=== PATIENT | male | born 1985 | race Caucasian/White ===

== ENCOUNTER 2019-03-30 16:08 | Emergency (ER) | payer SELFPAY ==
[2019-03-30 16:25] VITALS: BP 122/98; PULSE 96; RESP 18; TEMP 37.2; O2SAT 98
--- NOTE | 2019-03-30 16:51 | W.ED.GENAD ---
Discharge Plan Disposition Patient Disposition: HOME Condition: Good Discharge Details Chief Complaint: Laceration Clinical Impression: Laceration of left thigh Primary Care Provider: Lina Chester ED Provider: Karen Geller Home Meds and New Rx's Prescriptions: Continued methadone [Dolophine] 5 MG tablet 40 mg PO DAILY RF: 0 omeprazole 20 MG capsule,delayed release(DR/EC) 20 mg PO DAILY Qty: 30 RF: 0 Discharge Instructions Instructions: Care For Your Stitches (ED), Laceration (ED) Additional Instructions: Keep wound clean, dry, covered. Tylenol and ibuprofen as needed for discomfort. Please keep current dressing on for the next 24 hours. After that time, you may cover with a Band-Aid. You may wash with running water and soap but please do not soak or submerge as this may increase risk of infection. Please monitor for signs of infection including redness, warmth, drainage, increased pain, fever/chills. If you develop these or other new/worsening symptoms please seek care urgently once again. Otherwise, please return in 12 days for suture removal. Referrals: Lina Chester [Primary Care Provider] - Discharge Data Discharge Date/Time-TO BE ENTERED AT DEPARTURE: 03/30/19 18:00 Medical Decision Making Patient is a 33-year-old male presents today with chief complaint of laceration to left anterior thigh. Patient works as a mechanical design technician. States that he was doing body work when the rotational tad cut the left anterior thigh. He was wearing jeans at the time of the incident. Is not up-to-date on tetanus. Denies other injury the time of the incident. Denies any altered sensation. Patient has a 5 cm linear laceration to the left anterior thigh and into the subcutaneous tissue. Discussed risk/benefits of closure as well as expected procedural steps. He voiced understanding and wished to proceed. Please see procedure note. This was preformed using standard sterile technique. Wound was copiously irrigated with sterile saline, no FB or debris was noted. Patient tolerated procedure well. Discussed wound care in depth. Discussed activities to avoid. Wound dressed by nursing staff. He will return in 12 days for suture removal. Discussed sxs of infection and when to seek care urgently once again. All of his question and concerns were addressed, he is in agreement wiht this plan. HPI General Mode of arrival: ambulatory. Date/Time Provider Initiated Documentation: 03/30/19 16:44. Limitations to Documentation: no limitations. Information obtained by: patient and RN notes reviewed. History of Present Illness 33 year old M presents to the emergency department with the chief complaint of laceration left anterior thigh, described as moderate, with intensity rated at 7. Quality is described as aching, and is localized to the left and lower extremity. Patient reports no radiation. Patient started experiencing this minute(s) and it has been constant. No relieving factors improve symptom(s), No exacerbating factors reported . Patient notes no other symptoms.. Patient did receive the following treatments prior to arrival, none Related Data Home Medications Medication Instructions Recorded Confirmed methadone [Dolophine] 40 mg PO DAILY 07/07/17 03/30/19 omeprazole 20 mg PO DAILY #30 capsule. 12/21/17 03/30/19 Previous Rx's Medication Instructions Recorded omeprazole 20 mg PO DAILY #30 capsule. 12/21/17 Allergies Allergy/AdvReac Type Severity Reaction Status Date / Time No Known Allergies Allergy Unverified 03/30/19 16:24 General Stated Complaint: Laceration LUIS A: 4 Review of Systems Constitutional Reports as per HPI, Denies chills and Denies fever(s) Musculoskeletal Reports as per HPI Integumentary/Breasts Reports as per HPI Neurologic Reports as per HPI, Denies sensory deficit and Denies paresthesias [facility] Social History Smoking/Tobacco Use Status: Current every day Tobacco Type: smokeless tobacco Alcohol Intake: current Alcohol Intake frequency: a few times a week Drug use: Never Do you feel safe at home: Yes Do you feel safe in your relationship?: Yes Exam Const General: cooperative, healthy appearing, comfortable, no acute distress and well developed Nutritional Appearance: average body habitus and well nourished Orientation: alert and awake Resp Effort & Inspection: normal respiratory effort, able to speak in complete sentences and no respiratory distress Cardio Rate: regular rate Rhythm: regular rhythm Skin Trauma: laceration (6cm linear laceration into sub Q tissue left anterior mid thigh) Neuro General: alert and awake Cognition: normal cognition Speech: speech normal Gait: normal gait Sensory Exam: no sensory deficits noted Extrem Left lower extremity: full ROM, normal capillary refill and no joint enlargement; abnormal to inspection (laceration as above. Exam otherwise normal) Psych Appearance: grossly normal and well kempt Mental Status: mental status grossly normal Speech and Movement: speech and movement normal Course Vital Signs Temperature 37.2 C 03/30/19 16:25 Pulse 96 H 03/30/19 16:25 Respiratory Rate 18 03/30/19 16:25 Blood Pressure 122/98 H 03/30/19 16:25 Pulse Oximetry 98 03/30/19 16:25 Temperature 37.2 C 03/30/19 16:25 Temperature Source Temporal Artery Scan 03/30/19 16:25 Pulse 96 H 03/30/19 16:25 Respiratory Rate 18 03/30/19 16:25 Respiratory Effort Non-Labored 03/30/19 16:28 Blood Pressure 122/98 H 03/30/19 16:25 Blood Pressure Position Supine 03/30/19 16:25 Pulse Oximetry 98 03/30/19 16:25 Oxygen Delivery Method Room Air 03/30/19 16:25 Oxygen Flow Rate 0 03/30/19 16:25 Pain Level 7 03/30/19 16:29 Procedures Laceration Laceration 1: Site: lower extremity Side (If applicable): left Size (cm): 6 Description: linear Depth: simple, single layer Local Anesthetic: Lidocaine 1% and with Epi Amount of anesthesia used (mL): 10 Pre-repair: wound explored, irrigated extensively and deep structures intact Skin layer closed with: nylon Size (cm): 4-0 Number of sutures: 6 Technique: simple, interrupted
== END 2019-03-30 18:00 | disposition home or self-care (01) ==
PROVIDERS: Emergency Provider Physician Assistant; PCP Family Medicine
DX: S71.112A Laceration without foreign body, left thigh, initial encounter (principal); W31.2XXA Contact with powered woodworking and forming machines, initial encounter; Y99.0 Civilian activity done for income or pay
CPT/HCPCS: 12002; 90471

== ENCOUNTER 2022-03-09 08:18 | Emergency (ER) | payer MEDICAID, SELFPAY ==
[2022-03-09] VITALS (32 sets, daily range): BP systolic 117–155; BP diastolic 64–99; PULSE 48–89; RESP 10–24; TEMP 36.8; O2SAT 96–100
--- NOTE | 2022-03-09 08:30 | RT.EKG_ITS ---
APPROVED REPORT Exam: Resting ECG Reason for Exam: [facility] Patient Location: E HR:51 bpm ECG Measurements Heart Rate 51 AXIS SC 161 P 68 QRSd 97 QRS 72 QT 475 T 66 QTc 440 Conclusion Sinus bradycardia...rate< 60. Sinus. Normal axis. No STEMI. I have reviewed and interpreted ECG and agree with software generated interpretation.
--- NOTE | 2022-03-09 08:31 | DI.RAD_ITS ---
Exam(s) XR CHEST 1V IN DI DEPT EXAM: XR CHEST 1V IN DI DEPT CLINICAL HISTORY: ams. TECHNIQUE: 2D digital imaging was performed. COMPARISON: No exams were available for comparison FINDINGS: Single AP portable view. Heart size is upper normal. The mediastinum is not widened. Lungs are clear. No infiltrates nor obvious pleural effusions. IMPRESSION: No acute pulmonary findings on this single AP portable view of the chest. DATA REPOSITORY: RADIATION DOSE DELIVERED: All CT scans at this facility use at least one of these dose optimization techniques: automated exposure control; mA and/or kV adjustment per patient size (includes targeted e xams where dose is matched to clinical indication); or iterative reconstruction.
--- NOTE | 2022-03-09 08:33 | W.ED.GENAD ---
Discharge Plan Disposition Patient Disposition: [facility] Condition: Serious Discharge Details Chief Complaint: AMS/LOC Clinical Impression: Subarachnoid hemorrhage Primary Care Provider: Lina Chester ED Provider: Ismael Reaves Home Meds and New Rx's Prescriptions: No Action permethrin 5 % cream 1 applic topical Q14D Qty: 60 0RF Rx Instructions: apply second treatment 14 days after first treatment if live lice remain hydroxyzine pamoate 25 mg capsule 25 mg PO Q8H PRN (Reason: nausea and vomiting) Qty: 20 0RF methadone [Dolophine] 5 MG tablet 40 mg PO DAILY Taper: Prednisone 20mg taper 80 mg Daily for 2 Days and 0 Hour 60 mg Daily for 2 Days and 0 Hour 40 mg Daily for 2 Days and 0 Hour 20 mg Daily for 2 Days and 0 Hour 10 mg Daily for 2 Days and 0 Hour Label Comments: is on a blind taper so he is unaware of the dose omeprazole 20 MG capsule,delayed release(DR/EC) 20 mg PO DAILY Qty: 30 0RF Discharge Data Discharge Date/Time-TO BE ENTERED AT DEPARTURE: 03/09/22 12:15 Medical Decision Making <CHANO Lloyd - Last Filed: 03/09/22 12:00> 36-year-old gentleman presents for evaluation of altered mental status and headache, very vague and poor historian. 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 Does report drinking a couple of beers every day. Headache began sometime yesterday evening but denies any obvious trauma or recent illness. Differential is broad and includes intracranial process, meningitis, other infectious process, drug abuse, psychosis, etc. Plan is to obtain IV access, give IV fluid, obtain stat head CT initiate a septic and cardiac work-up as the patient's reports that he did have evaluation and admission at [facility] a few years ago when he was having chest pain and subsequently had his gallbladder removed, was told he had renal insufficiency and a spot on his brain. His tells me that he was seen at the urgent care 3 days ago for his skin wounds, he was provided a prescription for steroids but has not filled this. Otherwise I would be concerned for a steroid induced psychosis. If there is no clear source of his presentation will need to then consider LP. Laboratory values are grossly unremarkable for obvious emergent process. Patient unable to provide a urine sample. I received a call from virtual radiology stating that the patient has an Acute subarachnoid hemorrhage at the basal cisterns, minimal intraventricular , and subdural hemorrhage along the right tentorium, of uncertain etiology. CT imaging pushed to [facility] and I initiated a transfer to [facility] at 0938. Case was also discussed with Dr. Sterling who personally evaluated the patient, please see her note as well. Overall his mental status has not dramatically changed from his initial presentation. He continues to maintain his airway. Most recent blood pressure is 132/66. Given his overall restlessness and discomfort will provide 1 mg Ativan and 1 g IV Tylenol. At this time I do not believe that he requires emergent intubation. He remains hemodynamically stable as well. Patient has become less restless. We will hold any Ativan at this time and hope not to sedate the patient as he is currently maintaining his airway. Most recent blood pressure 145/90. At 1012 I was able to speak with neurosurgery from [facility] Dorcas Martines, we reviewed the case. She stated that they were on diversion for neuro IR and needed to consult with her team to determine if they would be able to accept the patient. I spoke with Dorcas from neurosurgery again at 1036. They are at capacity, on diversion and cannot accept the patient. She does state that on previous imaging at their facility he did had a brain cyst and questions if this could be the source of bleeding but this needs to be treated as an aneurysm until proven otherwise and the patient requires neuro IR. She recommends initiating Keppra 2 g IV loading dose now and then can do 500 mg twice daily, recommends the patient is n.p.o., that we monitored the blood pressure and keep the systolic below 140, and if possible obtain a CTA of the head and neck. We contacted [facility] and were told that they were at capacity and cannot accept at 1038 I was then able to speak with [facility] at 1048, Dr. Hartmann, who is agreeable to accept transfer to their neuro surgery unit. Stated that a CTA of the head and neck would be helpful if obtained prior to transfer but we will not delay transfer in order to obtain CTA. No additional recommendation. Will transfer via helicopter. Blood pressure monitored closely, he did have 2 blood pressure readings with a systolic over 140, 141 and 143 respectively. He was in the process of ordering nicardipine and the next blood pressure was 134/88. We will hold any antihypertensives. Patient's is now back at bedside and he appears slightly more awake and alert than previous. He is maintaining his airway without difficulty. Patient continues to maintain his airway without difficulty. There is no indication for emergent intubation. We were able to obtain the CTA of the head and neck, I have no read on either of these. I then gave provider provider discussion with both Sari Merino NP and lottie Armas MD on the neurosurgery ICU floor. They are aware of the transfer and accept the patient again after my initial conversation with Dr. Hartmann. Blood pressure, specifically the systolic blood pressure remains under 140, we have not initiated any antihypertensive medications. The radiology department was contacted and we requested that the patient go with a disc that contains all of their imaging from today. 03/09/22 Dr Sterling 0900 -- I have seen and examined this patient. I discussed case and reviewed note with the CHANO Reaves and I agree with plan and note as documented. Patient is a 36-year-old male with former history of narcotic drug abuse currently not on methadone presents for altered mental static and headache this morning. Patient has been altered at times and other times answering questions appropriately. He is oriented to person and place but not time. He is moving all extremities. CT head notes an acute subarachnoid hemorrhage at the basal cisterns with minimal intraventricular and subdural hemorrhage along the right territorial but no midline shift. He remains hemodynamically stable and protecting his airway. Low threshold for intubation. We will give Tylenol for pain. Ativan ordered as he was restless but more relaxed now. [facility] transfer initiated. 1020 -- patient remains hemodynamically stable. He continues to protect his airway. He is arousable and able to answer questions appropriately. He is oriented x3. Blood pressure 141/81. Oxygen saturation 99% on room air. 1045 -- pt remains hemodynamically stable. His systolic blood pressure is 145. Will give a dose of nicardipine. He is drowsy but arousable and oriented x3. He endorses his timeline of symptoms and that they started suddenly upon standing last night. who is at bedside states that he has been confused at times since last night. Pain is airway he continues to maintain his airway but low threshold for intubation. Medical Records Medical records reviewed: Yes I reviewed the patient's medical records. Imaging Data Radiologic Study: Attestation: I personally reviewed and interpreted this imaging study as follows: Imaging: X-Ray Radiologist's impression: PROCEDURE INFORMATION: Exam: XR Chest Exam date and time: 03/09/2022 7:15 AM Age: 21 years old Clinical indication: Cough with hemorrhage; Patient HX: Cough w/ speckling of blood. R/O mass/pneumonia TECHNIQUE: Imaging protocol: Radiologic exam of the chest. Views: 2 views. COMPARISON: CR XR ABDOMEN FLAT UPRIGHT 12/28/2021 12:18 PM FINDINGS: Lungs: Unremarkable. No consolidation. Pleural spaces: Unremarkable. No pleural effusion. No pneumothorax. Heart/Mediastinum: Unremarkable. No cardiomegaly. Bones/joints: Unremarkable. IMPRESSION: No acute findings. Radiologic Study #2: Attestation: I personally reviewed and interpreted this imaging study as follows: Imaging: CT Scan Radiologist's impression: PROCEDURE INFORMATION: Exam: CT Head Without Contrast Exam date and time: 03/09/2022 8:47 AM Age: 36 years old Clinical indication: Other: AMS TECHNIQUE: Imaging protocol: Computed tomography of the head without contrast. Radiation optimization: All CT scans at this facility use at least one of these dose optimization techniques: automated exposure control; mA and/or kV adjustment per patient size (includes targeted exams where dose is matched to clinical indication); or iterative reconstruction. COMPARISON: No relevant prior studies available. FINDINGS: Brain: Foci of acute subarachnoid hemorrhage are seen at the basal cisterns anterior to the brainstem and also along the interpeduncular fossa and perimesencephalic cistern on the right side. The largest focus measures 1.7 cm. A small amount of layering hemorrhage is also seen in the posterior horns of the lateral ventricles. The ventricular system is mildly prominent. There is question of an additional punctate focus of subarachnoid hemorrhage in the superior right frontal lobe. No definite midline shift is identified. There is a tiny amount of hemorrhage layering along the right side of the tentorium. Cerebral ventricles: See Brain finding. Paranasal sinuses: Visualized paranasal sinuses are well aerated. Mastoid air cells: Visualized mastoid air cells are well aerated. Bones/joints: No significant osseous abnormality. Soft tissues: Unremarkable. IMPRESSION: JOSSUE PABLO Preliminary Radiology Report PRESSURIZATION MECHANIC (QA) DISCREPANCY? If there is a discrepancy between the preliminary and final interpretation, please notify [facility] via [email or web address]. If you do not have access to our QA portal, call our QA team at [phone] CONFIDENTIALITY STATEMENT This report is intended only for the use of the referring physician, and only in accordance with law, If you received this in error, call [phone] Page 2 of 2 1. Acute subarachnoid hemorrhage at the basal cisterns, minimal intraventricular , and subdural hemorrhage along the right tentorium, of uncertain etiology. Close follow-up is recommended. 2. THIS REPORT CONTAINS FINDINGS 3. THAT MAY BE CRITICAL TO PATIENT CARE. 4. The findings were verbally communicated 5. Via telephone conference with Ismael Sullivan at 9:38 AM EDT on 03/09/2022. 7. The findings were acknowledged and understood. Lab Data Lab results reviewed: Yes I reviewed the patient's lab results. Labs: 03/09/22 08:31 Blood Blood Culture - Pending 03/09/22 08:31 Blood Blood Culture - Pending Laboratory Tests Range/Units 03/09/22 03/09/22 03/09/22 08:15 08:30 08:30 WBC (4.4-10.8) 10^3/uL 10.55 RBC (4.36-5.78) 10^6/uL 5.47 Hgb (13.5-17.5) g/dL 10.9 L Hct (40.0-50.0) % 34.7 L MCV (80-95) fL 63 L MCH (27.0-33.0) pg 19.9 L MCHC (32.0-36.0) % 31.4 L RDW (11.8-14.1) % 14.6 H Plt Count (130-400) 10^3/uL 258 MPV (8.0-11.0) fL 10.6 Immature Gran % 0.2 Neutrophils % 90.8 Lymphocytes % 5.7 Monocytes % 3.2 Eosinophils % 0.0 Basophils % 0.1 Nucleated RBC % (0.0-0.3) % 0.0 Absolute Neutrophils (1.2-6.7) 10^3/uL 9.58 H Absolute Lymphocytes (1.2-3.4) 10^3/uL 0.60 L Absolute Monocytes (0.1-0.8) 10^3/uL 0.34 Absolute Eosinophils (0.0-0.7) 10^3/uL 0.00 Absolute Basophils (0.0-0.2) 10^3/uL 0.01 RBC Morphology See Below Hypochromasia 1+ Microcytosis 2+ PT (9.3-11.0) sec INR (0.9-1.1) VBG Lactate Sodium (136-145) mmol/L 136 Potassium (3.5-5.1) mmol/L 3.4 L Chloride (98-107) mmol/L 102 Carbon Dioxide (21.0-32.0) mmol/L 24.4 Anion Gap (3-11) mmol/L 9.6 BUN (7-18) mg/dL 16 Creatinine (0.70-1.30) mg/dL 1.0 Estimated GFR/1.73 m2 (mL/min/1.73m2) >= 60.00 Glucose (74-106) mg/dL 123 H Calcium (8.5-10.1) mg/dL 8.7 Magnesium (1.8-2.4) mg/dL 2.1 Total Bilirubin (0.2-1.0) mg/dL 1.2 H AST (15-37) U/L 19 ALT (16-63) U/L 36 Alkaline Phosphatase (46-116) U/L 55 Troponin I (<or=60) ng/L < 50 Total Protein (6.4-8.2) g/dL 7.1 Albumin (3.4-5.0) g/dL 4.4 Procalcitonin ng/mL TSH (0.36-3.74) uIU/mL 0.40 Ethyl Alcohol (<10) mg/dL < 3.0 COVID-19 Source Nasopharynx SARS-CoV-2 (PCR) (Negative) Negative Influenza Type A (PCR) (Negative) Negative Influenza Type B (PCR) (Negative) Negative RSV (PCR) (Negative) Negative Range/Units 03/09/22 03/09/22 03/09/22 08:31 08:31 08:32 WBC (4.4-10.8) 10^3/uL RBC (4.36-5.78) 10^6/uL Hgb (13.5-17.5) g/dL Hct (40.0-50.0) % MCV (80-95) fL MCH (27.0-33.0) pg MCHC (32.0-36.0) % RDW (11.8-14.1) % Plt Count (130-400) 10^3/uL MPV (8.0-11.0) fL Immature Gran % Neutrophils % Lymphocytes % Monocytes % Eosinophils % Basophils % Nucleated RBC % (0.0-0.3) % Absolute Neutrophils (1.2-6.7) 10^3/uL Absolute Lymphocytes (1.2-3.4) 10^3/uL Absolute Monocytes (0.1-0.8) 10^3/uL Absolute Eosinophils (0.0-0.7) 10^3/uL Absolute Basophils (0.0-0.2) 10^3/uL RBC Morphology Hypochromasia Microcytosis PT (9.3-11.0) sec INR (0.9-1.1) VBG Lactate Cancelled Sodium (136-145) mmol/L Potassium (3.5-5.1) mmol/L Chloride (98-107) mmol/L Carbon Dioxide (21.0-32.0) mmol/L Anion Gap (3-11) mmol/L BUN (7-18) mg/dL Creatinine (0.70-1.30) mg/dL Estimated GFR/1.73 m2 (mL/min/1.73m2) Glucose (74-106) mg/dL Calcium (8.5-10.1) mg/dL Magnesium (1.8-2.4) mg/dL Cancelled Total Bilirubin (0.2-1.0) mg/dL AST (15-37) U/L ALT (16-63) U/L Alkaline Phosphatase (46-116) U/L Troponin I (<or=60) ng/L Cancelled Total Protein (6.4-8.2) g/dL Albumin (3.4-5.0) g/dL Procalcitonin ng/mL TSH (0.36-3.74) uIU/mL Cancelled Ethyl Alcohol (<10) mg/dL COVID-19 Source SARS-CoV-2 (PCR) (Negative) Influenza Type A (PCR) (Negative) Influenza Type B (PCR) (Negative) RSV (PCR) (Negative) Range/Units 03/09/22 03/09/22 03/09/22 08:45 08:45 08:45 WBC (4.4-10.8) 10^3/uL RBC (4.36-5.78) 10^6/uL Hgb (13.5-17.5) g/dL Hct (40.0-50.0) % MCV (80-95) fL MCH (27.0-33.0) pg MCHC (32.0-36.0) % RDW (11.8-14.1) % Plt Count (130-400) 10^3/uL MPV (8.0-11.0) fL Immature Gran % Neutrophils % Lymphocytes % Monocytes % Eosinophils % Basophils % Nucleated RBC % (0.0-0.3) % Absolute Neutrophils (1.2-6.7) 10^3/uL Absolute Lymphocytes (1.2-3.4) 10^3/uL Absolute Monocytes (0.1-0.8) 10^3/uL Absolute Eosinophils (0.0-0.7) 10^3/uL Absolute Basophils (0.0-0.2) 10^3/uL RBC Morphology Hypochromasia Microcytosis PT (9.3-11.0) sec 10.6 INR (0.9-1.1) 1.1 VBG Lactate 1.1 Sodium (136-145) mmol/L Potassium (3.5-5.1) mmol/L Chloride (98-107) mmol/L Carbon Dioxide (21.0-32.0) mmol/L Anion Gap (3-11) mmol/L BUN (7-18) mg/dL Creatinine (0.70-1.30) mg/dL Estimated GFR/1.73 m2 (mL/min/1.73m2) Glucose (74-106) mg/dL Calcium (8.5-10.1) mg/dL Magnesium (1.8-2.4) mg/dL Total Bilirubin (0.2-1.0) mg/dL AST (15-37) U/L ALT (16-63) U/L Alkaline Phosphatase (46-116) U/L Troponin I (<or=60) ng/L Total Protein (6.4-8.2) g/dL Albumin (3.4-5.0) g/dL Procalcitonin ng/mL < 0.1 TSH (0.36-3.74) uIU/mL Ethyl Alcohol (<10) mg/dL COVID-19 Source SARS-CoV-2 (PCR) (Negative) Influenza Type A (PCR) (Negative) Influenza Type B (PCR) (Negative) RSV (PCR) (Negative) ECG Data Attestation: I personally reviewed and interpreted this ECG (s) as follows: Interpretation: Please see official report by Dr. Sterling. Sinus bradycardia, ventricular to 51, no STEMI. <Jil Sterling, DO - Last Filed: 03/10/22 09:04> 36-year-old gentleman presents for evaluation of altered mental status and headache, very vague and poor historian. 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 Does report drinking a couple of beers every day. Headache began sometime yesterday evening but denies any obvious trauma or recent illness. Differential is broad and includes intracranial process, meningitis, other infectious process, drug abuse, psychosis, etc. Plan is to obtain IV access, give IV fluid, obtain stat head CT initiate a septic and cardiac work-up as the patient's reports that he did have evaluation and admission at [facility] a few years ago when he was having chest pain and subsequently had his gallbladder removed, was told he had renal insufficiency and a spot on his brain. His tells me that he was seen at the urgent care 3 days ago for his skin wounds, he was provided a prescription for steroids but has not filled this. Otherwise I would be concerned for a steroid induced psychosis. If there is no clear source of his presentation will need to then consider LP. Laboratory values are grossly unremarkable for obvious emergent process. Patient unable to provide a urine sample. I received a call from virtual radiology stating that the patient has an Acute subarachnoid hemorrhage at the basal cisterns, minimal intraventricular , and subdural hemorrhage along the right tentorium, of uncertain etiology. CT imaging pushed to [facility] and I initiated a transfer to [facility] at 0938. Case was also discussed with Dr. Sterling who personally evaluated the patient, please see her note as well. Overall his mental status has not dramatically changed from his initial presentation. He continues to maintain his airway. Most recent blood pressure is 132/66. Given his overall restlessness and discomfort will provide 1 mg Ativan and 1 g IV Tylenol. At this time I do not believe that he requires emergent intubation. He remains hemodynamically stable as well. Patient has become less restless. We will hold any Ativan at this time and hope not to sedate the patient as he is currently maintaining his airway. Most recent blood pressure 145/90. At 1012 I was able to speak with neurosurgery from [facility] Dorcas Martines, we reviewed the case. She stated that they were on diversion for neuro IR and needed to consult with her team to determine if they would be able to accept the patient. I spoke with Dorcas from neurosurgery again at 1036. They are at capacity, on diversion and cannot accept the patient. She does state that on previous imaging at their facility he did had a brain cyst and questions if this could be the source of bleeding but this needs to be treated as an aneurysm until proven otherwise and the patient requires neuro IR. She recommends initiating Keppra 2 g IV loading dose now and then can do 500 mg twice daily, recommends the patient is n.p.o., that we monitored the blood pressure and keep the systolic below 140, and if possible obtain a CTA of the head and neck. We contacted [facility] and were told that they were at capacity and cannot accept at 1038 I was then able to speak with [facility] at 1048, Dr. Hartmann, who is agreeable to accept transfer to their neuro surgery unit. Stated that a CTA of the head and neck would be helpful if obtained prior to transfer but we will not delay transfer in order to obtain CTA. No additional recommendation. Will transfer via helicopter. Blood pressure monitored closely, he did have 2 blood pressure readings with a systolic over 140, 141 and 143 respectively. He was in the process of ordering nicardipine and the next blood pressure was 134/88. We will hold any antihypertensives. Patient's is now back at bedside and he appears slightly more awake and alert than previous. He is maintaining his airway without difficulty. 03/09/22 Dr Sterling 0900 -- I have seen and examined this patient. I discussed case and reviewed note with the PA Ismael Jelly and I agree with plan and note as documented. Patient is a 36-year-old male with former history of narcotic drug abuse currently not on methadone presents for altered mental static and headache this morning. Patient has been altered at times and other times answering questions appropriately. He is oriented to person and place but not time. He is moving all extremities. CT head notes an acute subarachnoid hemorrhage at the basal cisterns with minimal intraventricular and subdural hemorrhage along the right territorial but no midline shift. He remains hemodynamically stable and protecting his airway. Low threshold for intubation if condition deteriorates. We will give Tylenol for pain. Ativan was ordered as he was uncomfortable during lab draw but more relaxed now so ativan held. [facility] transfer initiated. 1020 -- patient remains hemodynamically stable. He continues to protect his airway. He is arousable and able to answer questions appropriately. He is oriented x3. Blood pressure 141/81. Oxygen saturation 99% on room air. 1045 -- pt remains hemodynamically stable. His systolic blood pressure is 145. Will give a dose of nicardipine. He is drowsy but arousable and oriented x3. He now is able to endorse his timeline of symptoms and that they started suddenly upon standing last night. who is at bedside states that he has been confused at times since last night. He continues to maintain his airway but low threshold for intubation if change in condition or pt deteriorates. 1145 -- patient remains hemodynamically stable. He is maintaining his airway. He is drowsy but arousable and seems more clear in his responses. He is oriented x3. Patient transferred over the [facility] team in no acute distress, some improvement in headache and appears more comfortable. HPI <CHANO Lloyd - Last Filed: 03/09/22 12:00> General Mode of arrival: EMS. Date/Time Provider Initiated Documentation: 03/09/22 08:27. Limitations to Documentation: altered mental status. Information obtained by: patient, family and EMS. HPI Narrative: This is a 36-year-old gentleman presenting to the ER via EMS for evaluation of headache and altered mental status. Unfortunately given his altered mental status he is a rather vague and poor historian and has difficulty participating in his HPI. I was able to speak with the patient's . She states that he is otherwise healthy, did use IV narcotic medication 5 years ago but has been clean since that time, was on methadone but has not been on methadone for the last 2 or 3 years. She states that he does drink a couple of beers on a daily basis. Yesterday she states that she received a call from her child at home around 10 PM stating that her father began having a headache, no obvious fall or trauma. She states that he took ibuprofen last night but throughout the night was complaining of head pain, seemed confused, and even urinated in the bedroom. He is not vaccinated for COVID. She denies any obvious known trauma or recent illness. Patient reported neck pain during triage but this is unclear to me as he is unable to tell me if he truly has neck pain or for simply head pain. He denies vomiting or fever. He does state that he has had a rash for approximately 5 weeks, seen at the urgent care 3 days ago was prescribed steroids but has not filled them, is scheduled to see dermatology next week. After speaking with the patient's she reports that a few years ago he was seen at [facility], subsequently transferred to [facility], was told he had a spot on his brain, had his gallbladder out, and was told that he had renal insufficiency. Related Data Home Medications Medication Instructions Recorded Confirmed methadone 5 mg tablet (Dolophine) 40 mg PO DAILY 07/07/17 03/30/19 omeprazole 20 mg capsule,delayed 20 mg PO DAILY ##30 12/21/17 03/30/19 release hydroxyzine pamoate 25 mg capsule 25 mg PO Q8H PRN nausea and 02/28/22 02/28/22 vomiting #20 caps permethrin 5 % topical cream 1 applic topical Q14D 2 doses #60 02/28/22 02/28/22 grams Previous Rx's Medication Instructions Recorded omeprazole 20 mg capsule,delayed 20 mg PO DAILY ##30 12/21/17 release hydroxyzine pamoate 25 mg capsule 25 mg PO Q8H PRN nausea and 02/28/22 vomiting #20 caps permethrin 5 % topical cream 1 applic topical Q14D 2 doses #60 02/28/22 grams Allergies Allergy/AdvReac Type Severity Reaction Status Date / Time No Known Allergies Allergy Unverified 02/28/22 16:29 General Stated Complaint: AMS/LOC LUIS A: 2 Review of Systems <CHANO Lloyd - Last Filed: 03/09/22 12:00> Narrative: Limited and difficult to obtain secondary to mental status Constitutional Constitutional: Denies fatigue, Denies fever(s), Reports headache(s) and Denies weakness Eyes Eyes: Denies loss of vision ENT Ears, Nose, Mouth, and Throat: Reports headache(s) and Reports neck pain (Unclear) Cardiovascular Cardiovascular: Denies chest pain and Denies dyspnea Respiratory Respiratory: Denies cough and Denies dyspnea Gastrointestinal Gastrointestinal: Denies abdominal pain, Denies nausea and Denies vomiting Musculoskeletal Musculoskeletal: Reports neck pain (Unclear) Integumentary/Breasts Skin/Breast: Reports rash Neurologic Neurologic: Reports headache(s), Denies loss of vision and Denies weakness Endocrine Endocrine: Denies fatigue Hematologic/Lymphatic Hematologic/Lymphatic: Denies easy bleeding and Denies easy bruising PFSH <CHANO Lloyd - Last Filed: 03/09/22 12:00> All Active Problems (Updated 03/09/22 @ 09:57 by CHANO Lloyd) Subarachnoid hemorrhage (Acute) Social History Smoking/Tobacco Use Status: Current every day Tobacco Type: smokeless tobacco Smoking risk assessment performed?: Yes Alcohol Intake: current Alcohol Intake frequency: a few times a week Drug use: Never Do you feel safe at home: Yes Do you feel safe in your relationship?: Yes Exam <CHANO Lloyd - Last Filed: 03/09/22 12:00> Const General: well developed and other (Appears uncomfortable, groaning, yells in pain) Orientation: alert, awake, oriented to person and oriented to place Limitations: altered mental status [facility] Head: normal to inspection, normocephalic and atraumatic General nose exam: external nose normal Face and sinus: normal facial exam Mouth: moist mucous membranes abnormal (Slightly dry) Throat: posterior oropharynx normal Eyes General: appearance normal, both eyes and all related structures Alignment and Position: alignment normal Periorbital: periorbital findings normal Eyelids: eyelids normal Conjunctivae: conjunctivae normal Sclera: sclerae normal Cornea: corneas normal Pupils: PERRL EOM: EOM intact bilaterally Direct ophthalmoscopy: normal light reflex Neck Neck: normal visual inspection, full ROM, no lymphadenopathy, no meningeal signs, trachea midline, supple and nontender Resp Effort & Inspection: normal respiratory effort and able to speak in complete sentences Auscultation: clear to auscultation bilaterally Cardio Rate: bradycardic (56) Rhythm: regular rhythm GI Palpation: soft, not firm, no guarding, no pulsatile masses and nontender Back/Spine/Pelvis Back: No back tenderness Skin General skin exam: no rashes or lesions noted Other: Patient does have multiple what appears to be shallow skin wounds-lesions on both of his arms, abdomen, legs. I do question a single track sindy in his left antecubital region. The wound on his abdomen does have mild surrounding ecchymosis. None of these areas appear consistent with a secondary cellulitis, drainage, active infection. Neuro General: patient alert, patient awake, oriented Patient Orientation: Person and Place, moves all extremities and no focal motor deficits Speech: speech normal Motor: muscle tone normal throughout Sensory Exam: no sensory deficits noted Other: Patient only partially follows directions so a thorough neurological examination is rather difficult. He does open his eyes to verbal stimuli, is able to stick his tongue out, equal wholesale account manager strength bilaterally, grossly moves all extremities without difficulty. Extrem General: full ROM, capillary refill normal, no pedal edema and no calf tenderness Psych Appearance: grossly normal Mental Status: mental status grossly normal Course <CHANO Lloyd - Last Filed: 03/09/22 12:00> Vital Signs Vital signs: Vital Signs Temperature 36.8 C 03/09/22 08:12 Pulse 56 L 03/09/22 08:12 Respiratory Rate 18 03/09/22 08:12 Blood Pressure 155/88 H 03/09/22 08:12 Pulse Oximetry 100 03/09/22 08:12 Temperature 36.8 C 03/09/22 08:12 Temperature Source Temporal Artery Scan 03/09/22 08:12 Pulse 56 L 03/09/22 08:12 Respiratory Rate 18 03/09/22 08:17 Respiratory Effort Non-Labored 03/09/22 08:17 Respiratory Depth Normal 03/09/22 08:17 Respiratory Pattern Normal 03/09/22 08:17 Blood Pressure 155/88 H 03/09/22 08:12 Blood Pressure Position Supine 03/09/22 08:12 Pulse Oximetry 100 03/09/22 08:12 Oxygen Delivery Method Room Air 03/09/22 08:12 Oxygen Flow Rate 0 03/09/22 08:12 Critical Care Time <CHANO Lloyd - Last Filed: 03/09/22 12:00> Critical Care Time Critical Care Time: Yes Total Critical Care Time: 75 Attestation: Upon my evaluation, this patient had a high probability of clinically significant, life-threatening deterioration due to their current medical conditions, which required my direct attention, intervention, and personal management. I have personally provided greater than 30 minutes of critical care time exclusive of the time spend on separately billable procedures. Time includes obtaining a history, examining the patient, pulse oximetry, review of laboratory data, radiology results, discussion with consultants, arranging urgent treatment with development of a management plan, evaluation of patient's response to treatment, and monitoring for potential decompensation. Interventions were performed as documented above.
[2022-03-09 08:38] LABS: Abs Immature Grans 0.02 10^3/uL (0.0-0.06); Absolute Basophil Count 0.01 10^3/uL (0.0-0.2); Absolute Monocyte Count 0.34 10^3/uL (0.1-0.8); Absolute Neutrophil Count 9.58 10^3/uL (1.2-6.7); Basophils % 0.1; HCT 34.7 % (40.0-50.0); HGB 10.9 g/dL (13.5-17.5); Immature Grans % 0.2; Lymphocytes % 5.7; MCH 19.9 pg (27.0-33.0); MCHC 31.4 % (32.0-36.0); MCV 63 fL (80-95); MPV 10.6 fL (8.0-11.0); Monocytes % 3.2; Neutrophils % 90.8; Platelet Count 258 10^3/uL (130-400); RBC 5.47 10^6/uL (4.36-5.78); RDW 14.6 % (11.8-14.1); RDW-SD 31.8 fL; WBC 10.55 10^3/uL (4.4-10.8)
[2022-03-09] MEDS: Normal Saline 1,000 ML 1000 ML IV (08:40)
--- NOTE | 2022-03-09 08:47 | DI.CT_ITS ---
Exam(s) CT HEAD WO EXAM: CT HEAD WO CLINICAL HISTORY: VEGA. TECHNIQUE: Imaging Protocol: Axial computed tomography images with coronal and sagittal reformatted images were created and reviewed COMPARISON: No exams were available for comparison FINDINGS: There are no skull fractures nor fluid in the visualized paranasal sinuses. There is multilevel extra-axial blood. At the skull base there are left of center and right of cente r hyperdensities in the retro clival extra-axial space anterior to the albertina-pre pontine cistern intim ately associated with upper vertebral lower basilar artery. Probably clots. Also some blood in the right perimesencephalic cistern and in the basal cisterns right side. Also within the interpeduncula r cistern. No blood within the left lateral ventricle. Tiny amount of blood in the dependent aspect of the right lateral ventricle. No blood in the 3rd and 4th ventricles. No obvious intra-axial blo od in the supra tentorial compartment. IMPRESSION: There is acute extra-axial subarachnoid blood in the basal cisterns as well as subdural hemorrhage al zhen the right side of the tentorium. Other locations as above including a tiny amount of blood in th e dependent posterior aspect of the right lateral ventricle. No evidence of herniation at this time. No skull fracture evident. No pneumocephalus. RADIATION DOSE DELIVERED: 968.2mGy.cm Total DLP DATA REPOSITORY: All CT scans at this facility are submitted to the National Radiology Data Registry (NRDR) Dose Index Registry (DIR) with the [employer] (ACR). RADIATION OPTIMIZATION: All CT scans at this facility use at least one of these dose optimization te chniques: automated exposure control; mA and/or kV adjustment per patient size (includes targeted exa ms where dose is matched to clinical indication); or iterative reconstruction.
[2022-03-09 08:52] LABS: Lactate 1.1 mmol/L (0.6-1.4)
[2022-03-09 09:00] LABS: COVID-19 PCR Negative (Negative); Influenza A PCR Negative (Negative); Influenza B PCR Negative (Negative); RSV PCR Negative (Negative)
[2022-03-09 09:03] LABS: Diff Comment RBC Morph Reviewed; Hypochromasia 1+; Microcytosis 2+
[2022-03-09 09:04] LABS: INR 1.1 (0.9-1.1); Prothrombin Time 10.6 sec (9.3-11.0)
[2022-03-09 09:04] LABS: Source Nasopharynx
[2022-03-09 09:28] LABS: Procalcitonin < 0.1 ng/mL
[2022-03-09 09:30] LABS: ALT 36 U/L (16-63); AST 19 U/L (15-37); Albumin 4.4 g/dL (3.4-5.0); Alkaline Phosphatase 55 U/L (46-116); Anion Gap 9.6 mmol/L (3-11); BUN 16 mg/dL (7-18); Bilirubin, Total 1.2 mg/dL (0.2-1.0); CO2 24.4 mmol/L (21.0-32.0); Calcium 8.7 mg/dL (8.5-10.1); Chloride 102 mmol/L (98-107); ETHANOL BLOOD < 3.0 mg/dL (<10); Glucose 123 mg/dL (74-106); Magnesium 2.1 mg/dL (1.8-2.4); Potassium 3.4 mmol/L (3.5-5.1); Sodium 136 mmol/L (136-145); Total Protein 7.1 g/dL (6.4-8.2); Troponin I < 50 ng/L (<or=60)
--- NOTE | 2022-03-09 09:42 | DI.VRAD_ITS ---
PROCEDURE INFORMATION: Exam: CT Head Without Contrast Exam date and time: 03/09/2022 8:47 AM Age: 36 years old Clinical indication: Other: AMS TECHNIQUE: Imaging protocol: Computed tomography of the head without contrast. Radiation optimization: All CT scans at this facility use at least one of these dose optimization techniques: automated exposure control; mA and/or kV adjustment per patient size (includes targeted exams where dose is matched to clinical indication); or iterative reconstruction. COMPARISON: No relevant prior studies available. FINDINGS: Brain: Foci of acute subarachnoid hemorrhage are seen at the basal cisterns anterior to the brainstem and also along the interpeduncular fossa and perimesencephalic cistern on the right side. The largest focus measures 1.7 cm. A small amount of layering hemorrhage is also seen in the posterior horns of the lateral ventricles. The ventricular system is mildly prominent. There is question of an additional punctate focus of subarachnoid hemorrhage in the superior right frontal lobe. No definite midline shift is identified. There is a tiny amount of hemorrhage layering along the right side of the tentorium. Cerebral ventricles: See Brain finding. Paranasal sinuses: Visualized paranasal sinuses are well aerated. Mastoid air cells: Visualized mastoid air cells are well aerated. Bones/joints: No significant osseous abnormality. Soft tissues: Unremarkable. IMPRESSION: 1. Acute subarachnoid hemorrhage at the basal cisterns, minimal intraventricular , and subdural hemorrhage along the right tentorium, of uncertain etiology. Close follow-up is recommended. 2. THIS REPORT CONTAINS FINDINGS 3. THAT MAY BE CRITICAL TO PATIENT CARE. 4. The findings were verbally communicated 5. Via telephone conference with Justin. Ismael Reaves at 9:38 AM EDT on 03/09/2022. 7. The findings were acknowledged and understood. Dictated and Authenticated by: Umang Salas MD. Ordering:TEJAS Guevara MD
--- NOTE | 2022-03-09 09:53 | DI.VRAD_ITS ---
PROCEDURE INFORMATION: Exam: XR Chest Exam date and time: 03/09/2022 8:46 AM Age: 36 years old Clinical indication: Other: AMS TECHNIQUE: Imaging protocol: Radiologic exam of the chest. Views: 1 view. COMPARISON: CT ABD PELVIS WITH CONTRAST 12/21/2017 7:34 PM FINDINGS: Lungs: No airspace infiltrate. Pleural spaces: No evidence of pleural effusion or pneumothorax. Heart/Mediastinum: Unremarkable. No cardiomegaly. Bones/joints: No significant osseous abnormality. IMPRESSION: No acute findings. Dictated and Authenticated by: Umang Salas MD. Ordering:TEJAS Guevara MD
[2022-03-09] MEDS: ACETAMINOPHEN 1,000 MG/100 ML BTL 400 MG IVPB (09:59)
[2022-03-09] MEDS: LORazepam 20 MG/10 ML VIAL IVP (10:05)
[2022-03-09] MEDS: Normal Saline 1,000 ML 150 ML IV (10:06)
--- NOTE | 2022-03-09 10:30 | DI.CT_ITS ---
Exam(s) CT BRAIN NECK CTA EXAM: CT BRAIN NECK CTA CLINICAL HISTORY: Subarachnoid hemorrhage. TECHNIQUE: Imaging Protocol: Axial CT angiography was performed with multi-slice acquisition and mu lti-planar and/or 3D reconstructions. CONTRAST MATERIAL: Intravenous: Omnipaque 350 Contrast volume:structured data in ml COMPARISON: CT ABD PELVIS WITH CONTRAST from 12/21/2017 FINDINGS: CTA Neck W: Aortic arch anatomy: The aortic arch anatomy is conventional. Origins of the great vessels off the ao rtic arch are patent. No dissection flap. Anterior circulation: Both common carotid arteries ascend with normal luminal diameters. Also no significant stenosis nor dissection of the level the carotid bulbs and proximal internal carotid arteries and the upper internal combustion engine inspector al carotid arteries in the upper neck are patent bilaterally as they are in the skull base-carotid ca nals. Posterior circulation: Both vertebral arteries are patent and originated conventional fashion off of the subclavian arteries . There is no subclavian artery stenosis proximal to the vertebral artery takeoff points. Both vert ebral arteries ascend in the foramen transversarium with normal equal luminal diameters. No intralum inal thrombus. No dissection flap. Both vertebral arteries contribute to the formation of the basil ar artery at the skull base. CTA Brain W: Anterior circulation: Both internal carotid arteries are patent in the skull base carotid canals as well as within the cave rnous sinuses. Supraclinoid aspects are patent. Both A1 segments are patent as are the anterior cer ebral arteries. There is no aneurysm at the level of the anterior communicating artery. The middle cerebral arteries are patent bilaterally. Posterior circulation: Basilar artery is formed by both vertebral arteries at the skull base and ascends in the midline with normal luminal diameter and no dissection. Distally gives off superior cerebellar arteries and post erior cerebral arteries bilaterally. There is no aneurysm tip of the basilar artery nor elsewhere in the [id number]. CT BRAIN: Subarachnoid hemorrhage in the perimesencephalic cistern and prepontine cistern There is also small amount of hyperdense blood in the dependent aspects of the right lateral ventricl e. Also blood along the tentorium. IMPRESSION: 1. No evidence of stenosis nor occlusion of the carotid and vertebral arteries in the neck and head. No dissection. 2. Intracranial extra-axial hemorrhage as described above. 3. No aneurysms evident. RADIATION DOSE DELIVERED: 1,490.18mGy.cm Total DLP DATA REPOSITORY: All CT scans at this facility are submitted to the National Radiology Data Registry (NRDR) Dose Index Registry (DIR) with the [employer] (ACR). RADIATION OPTIMIZATION: All CT scans at this facility use at least one of these dose optimization te chniques: automated exposure control; mA and/or kV adjustment per patient size (includes targeted exa ms where dose is matched to clinical indication); or iterative reconstruction.
[2022-03-09] MEDS: levETIRAcetam 2,000 MG in Normal Saline 100 ML 400 MG IVPB (10:58)
[2022-03-09 11:15] LABS: Bilirubin Negative (Negative); Blood Small (Negative); Clarity Clear (Clear); Glucose Negative (Negative); Ketones 40 mg/dL (Negative); Leukocyte Esterase Negative (Negative); Nitrite Negative (Negative); Urobilinogen 0.2 EU/dL (Up TO 0.2)
[2022-03-09 11:23] LABS: Bacteria Negative HPF (Negative); C & S Indicated? No; Casts 3-5 Hyaline LPF (Negative); Crystals Negative HPF (Negative); Epithelial Cells Rare HPF (Negative); Mucus Negative (Negative); RBC 0-2 HPF (0-2); WBC Negative HPF (0-5)
[2022-03-09 11:36] LABS: *AMPHETAMINES SCREEN URINE Negative (Negative); *BARBITURATES SCREEN URINE Negative (Negative); *BENZODIAZEPINES SCREEN URINE Negative (Negative); Cannabinoids THC Negative (Negative); Cocaine Screen,Urine Positive (Negative); METHADONE URINE SCREEN Negative (Negative); OPIATES URINE SCREEN Negative (Negative)
[2022-03-09 11:37] LABS: Tricyclic Antidepressants Negative (Negative)
[2022-03-09] MEDS: Omnipaque 350 MG/ML 100 ML BTL 85 ML IJ (11:43)
[2022-03-09] MEDS: Normal Saline Flush 10 ML SYR IVP (11:44)
--- NOTE | 2022-03-09 12:06 | DI.VRAD_ITS ---
PROCEDURE INFORMATION: Exam: CTA Head With Contrast, Arteries Exam date and time: 03/09/2022 11:25 AM Age: 36 years old Clinical indication: Other: Subarachnoid hemorrhage TECHNIQUE: Imaging protocol: Computed tomographic angiography of the head with contrast. 3D rendering (Not supervised by radiologist): MIP and/or 3D reconstructed images were created by the technologist. Contrast material: OMNIPAQUE 350; Contrast volume: 85 ml; Contrast route: INTRAVENOUS (IV); COMPARISON: CT HEAD WO 03/09/2022 8:47 AM FINDINGS: ANTERIOR CIRCULATION: Right internal carotid artery: Unremarkable. Intracranial segment is patent with no significant stenosis. No aneurysm. Right middle cerebral artery: Unremarkable. No occlusion or significant stenosis. No aneurysm. Right anterior cerebral artery: Unremarkable. No occlusion or significant stenosis. No aneurysm. Left internal carotid artery: Unremarkable. Intracranial segment is patent with no significant stenosis. No aneurysm. Left middle cerebral artery: Unremarkable. No occlusion or significant stenosis. No aneurysm. Left anterior cerebral artery: Unremarkable. No occlusion or significant stenosis. No aneurysm. POSTERIOR CIRCULATION: Right vertebral artery: Unremarkable. No occlusion or significant stenosis. No aneurysm. Left vertebral artery: Unremarkable. No occlusion or significant stenosis. No aneurysm. Basilar artery: Unremarkable. No occlusion or significant stenosis. No aneurysm. Right posterior cerebral artery: Unremarkable. No occlusion or significant stenosis. No aneurysm. Left posterior cerebral artery: Unremarkable. No occlusion or significant stenosis. No aneurysm. Brain: Redemonstration of subarachnoid hemorrhage along the interbody no angular fossa, right perimesencephalic cistern and prepontine cistern, particularly on the left as seen on the delayed images and corresponding to findings on the recent noncontrast head CT. Cerebral ventricles: No ventriculomegaly. Bones/joints: Unremarkable. Soft tissues: Unremarkable. IMPRESSION: Redemonstration of subarachnoid hemorrhage along the interbody no angular fossa, right perimesencephalic cistern and prepontine cistern, particularly on the left as seen on the delayed images and corresponding to findings on the recent noncontrast head CT. No intracranial aneurysm. No large vessel occlusion or stenosis. PROCEDURE INFORMATION: Exam: CTA Neck With Contrast Exam date and time: 03/09/2022 11:25 AM Age: 36 years old Clinical indication: Other: Subarachnoid hemorrhage TECHNIQUE: Imaging protocol: Computed tomographic angiography of the neck with contrast. 3D rendering (Not supervised by radiologist): MIP and/or 3D reconstructed images were created by the technologist. Radiation optimization: All CT scans at this facility use at least one of these dose optimization techniques: automated exposure control; mA and/or kV adjustment per patient size (includes targeted exams where dose is matched to clinical indication); or iterative reconstruction. Contrast material: OMNIPAQUE 350; Contrast volume: 85 ml; Contrast route: INTRAVENOUS (IV); COMPARISON: CT HEAD WO 03/09/2022 8:47 AM FINDINGS: Right common carotid artery: No stenosis. No dissection or occlusion. Right internal carotid artery: No significant proximal ICA stenosis by NASCET criteria. Right external carotid artery: No occlusion or stenosis of the origin. Left common carotid artery: No stenosis. No dissection or occlusion. Left internal carotid artery: No significant proximal ICA stenosis by NASCET criteria. Left external carotid artery: No occlusion or stenosis of the origin. Right vertebral artery: No stenosis. No dissection or occlusion. Left vertebral artery: No stenosis. No dissection or occlusion. Soft tissues: No significant soft tissue swelling. Bones/joints: No acute fracture. Lungs: The visualized lung apex is clear. IMPRESSION: No stenosis or occlusion. REFERENCES: NASCET CRITERIA. The degree of internal carotid artery stenosis is based on NASCET criteria. Normal is no stenosis. Mild is less than 50% stenosis. Moderate is 50-69% stenosis. Severe is 70% to 99% stenosis. Total occlusion is no detectable patent lumen. Dictated and Authenticated by: Tracy Gonzalez MD. Ordering:TEJAS Guevara MD
== END 2022-03-09 12:15 ==
PROVIDERS: Emergency Provider Physician Assistant; PCP Family Medicine
DX: I60.8 Other nontraumatic subarachnoid hemorrhage (principal); R41.82 Altered mental status, unspecified; R51.9 Headache, unspecified
CPT/HCPCS: 36415; 36416; 70496; 70498; 80053; 80307; 82962; 84145; 87040; 87637; 93005; 96361; 96365; 96375; 99291; 99292; 70450; 71045; 80320; 81003; 81015; 83605; 83735; 84443; 84484; 85025; 85610; 93010; J0131; J1953; J3490

== ENCOUNTER 2022-05-22 12:39 | Emergency (ER) | payer MEDICAID, SELFPAY ==
[2022-05-22 12:54] VITALS: BP 138/68; PULSE 92; RESP 18; TEMP 37.2; O2SAT 100
--- NOTE | 2022-05-22 13:35 | ED.GENADUL_ITS ---
Discharge Plan Disposition Patient Disposition: HOME Condition: Stable Discharge Details Chief Complaint: DrugWithdr/MAT Clinical Impression: Nausea Primary Care Provider: Lina Chester ED Provider: Aramis Suggs Home Meds and New Rx's Prescriptions: No Action permethrin 5 % cream 1 applic topical Q14D Qty: 60 0RF Rx Instructions: apply second treatment 14 days after first treatment if live lice remain hydroxyzine pamoate 25 mg capsule 25 mg PO Q8H PRN (Reason: nausea and vomiting) Qty: 20 0RF methadone [Dolophine] 5 MG tablet 40 mg PO DAILY Taper: Prednisone 20mg taper 80 mg Daily for 2 Days and 0 Hour 60 mg Daily for 2 Days and 0 Hour 40 mg Daily for 2 Days and 0 Hour 20 mg Daily for 2 Days and 0 Hour 10 mg Daily for 2 Days and 0 Hour Label Comments: is on a blind taper so he is unaware of the dose omeprazole 20 MG capsule,delayed release(DR/EC) 20 mg PO DAILY Qty: 30 0RF Discharge Instructions Instructions: Acute Nausea and Vomiting (ED) Additional Instructions: Please follow-up with your primary care physician. Please follow-up with clinic. Please return to the emergency department for any worsening symptoms. Medical Decision Making 36-year-old male history of recent brain aneurysm, opioid abuse, last use yesterday, endorses symptoms of opioid withdrawal, feels as if he is having restless legs also has had some nausea and some loose stool. Patient is hemodynamically stable afebrile nontoxic moving all extremities cranial nerves II through XII intact, 5 out of 5 strength upper and lower extremities, no ataxia ambulatory without assistance. Consider mild early opioid withdrawal. Low suspicion for new intracranial process such as rebleed or complications of aneurysm. Will provide low-dose p.o. clonidine 0.1 mg p.o. here in department as well as Zofran. Patient to follow-up with methadone clinic already has contacted clinic but awaiting intake next week. Given home care instructions and strict return precautions. HPI General Date/Time Provider Initiated Documentation: 05/22/22 13:08 . HPI Narrative: 36-year-old male recent brain aneurysm, opiate abuse, presents endorsing symptoms of opioid withdrawal including restless legs nausea and loose stool, denies headache weakness or other neurologic symptoms. Last used yesterday. Has already obtained a referral to the methadone clinic however will not be seen until next week. Related Data Home Medications Medication Instructions Recorded Confirmed methadone 5 mg tablet (Dolophine) 40 mg PO DAILY 07/07/17 03/30/19 omeprazole 20 mg capsule,delayed 20 mg PO DAILY ##30 12/21/17 03/30/19 release hydroxyzine pamoate 25 mg capsule 25 mg PO Q8H PRN nausea and 02/28/22 02/28/22 vomiting #20 caps permethrin 5 % topical cream 1 applic topical Q14D 2 doses #60 02/28/22 02/28/22 grams Previous Rx's Medication Instructions Recorded omeprazole 20 mg capsule,delayed 20 mg PO DAILY ##30 12/21/17 release hydroxyzine pamoate 25 mg capsule 25 mg PO Q8H PRN nausea and 02/28/22 vomiting #20 caps permethrin 5 % topical cream 1 applic topical Q14D 2 doses #60 02/28/22 grams Allergies Allergy/AdvReac Type Severity Reaction Status Date / Time No Known Allergies Allergy Unverified 02/28/22 16:29 General Stated Complaint: DrugWithdr/MAT LUIS A: 3 Review of Systems Narrative: Review of Systems Constitutional: negative Eyes: negative ENT: negative Cardiovascular: negative Respiratory: negative Gastrointestinal: Nausea, loose stool : negative Musculoskeletal: negative Skin: negative Neurologic: Restless legs Psych: negative PFSH All Active Problems (Updated 05/22/22 @ 13:40 by Aramis Suggs MD) Nausea (Acute) Social History Smoking/Tobacco Use Status: Current every day Tobacco Type: smokeless tobacco Smoking risk assessment performed?: Yes Alcohol Intake: current Alcohol Intake frequency: a few times a week Drug use: Never Do you feel safe at home: Yes Do you feel safe in your relationship?: Yes Exam Narrative Exam Narrative: Physical Examination General: alert, awake, cooperative, resting comfortably, no acute distress HEENT: normocephalic, atraumatic; PERRL, EOM intact, conjunctiva normal; no nasal discharge; moist mucous membranes, oral and pharyngeal mucosa normal, tolerating secretions Neck: supple, trachea midline; full ROM Chest: normal to inspection Respiratory: normal respiratory effort, speaking in full sentences, clear to auscultation, no wheezing, rales or rhonchi Cardiac: regular rate, regular rhythm, S1S2 intact, no murmurs rubs or gallops GI: abdomen soft, non-tender, non-distended; no palpable mass or hepatosplenomegaly Skin: no lesions, rashes or trauma appreciated Neuro: AAOx3, normal speech, moving all extremities; 5-5 strength upper and lower extremities, cranial nerves II through XII intact, no ataxia, ambulatory without assistance Psych: Appropriate mood and affect Course Vital Signs Vital signs: Vital Signs Temperature 37.2 C 05/22/22 12:54 Pulse 92 H 05/22/22 12:54 Respiratory Rate 18 05/22/22 12:54 Blood Pressure 138/68 05/22/22 12:54 Pulse Oximetry 100 05/22/22 12:54 Temperature 37.2 C 05/22/22 12:54 Temperature Source Oral 05/22/22 12:54 Pulse 92 H 05/22/22 12:54 Respiratory Rate 18 05/22/22 12:54 Blood Pressure 138/68 05/22/22 12:54 Blood Pressure Position Sitting 05/22/22 12:54 Pulse Oximetry 100 05/22/22 12:54 Oxygen Delivery Method Room Air 05/22/22 12:54 Oxygen Flow Rate 0 05/22/22 12:54 Pain Level 8 05/22/22 12:54
[2022-05-22] MEDS: Ondansetron O.D.T. 4 MG TABEF PO (13:55)
[2022-05-22] MEDS: cloNIDine 0.1 MG TAB PO (13:55)
[2022-05-22 13:58] VITALS: BP 132/85; PULSE 82; RESP 18; O2SAT 100
== END 2022-05-22 14:03 | disposition home or self-care (01) ==
PROVIDERS: Emergency Provider Emergency Medicine; PCP Family Medicine
DX: R11.0 Nausea (principal); R19.5 Other fecal abnormalities; F17.290 Nicotine dependence, other tobacco product, uncomplicated
CPT/HCPCS: 99283

== ENCOUNTER 2022-07-09 09:20 | Emergency (ER) | payer MEDICAID, SELFPAY ==
[2022-07-09 09:26] VITALS: BP 137/79; PULSE 93; RESP 16; TEMP 36.6; O2SAT 100
--- NOTE | 2022-07-09 10:18 | DI.RAD_ITS ---
Exam(s) XR TIB/FIB LT EXAM: XR TIB/FIB LT CLINICAL HISTORY: ttp proximal. TECHNIQUE: 2D digital imaging was performed. COMPARISON: No exams were available for comparison FINDINGS: Two views-AP and lateral No evidence of tibial plateau fracture or fracture elsewhere in the tibia and fibula. No widening of the ankle mortise. Bone density normal. No osseous lesions. No radiopaque foreign body. IMPRESSION: No significant osseous findings. DATA REPOSITORY: RADIATION DOSE DELIVERED:
--- NOTE | 2022-07-09 10:18 | DI.RAD_ITS ---
Exam(s) XR FOOT LT COMPLETE EXAM: XR FOOT LT COMPLETE CLINICAL HISTORY: trauma, ttp 1st and 2nd toes, medial foot. TECHNIQUE: 2D digital imaging was performed. COMPARISON: No exams were available for comparison FINDINGS: 3 views No evidence of fracture or diastasis of the Lisfranc joint. Bone density normal. No osseous lesions . No erosions. There is no radiopaque foreign body. No pes planus. IMPRESSION: No significant osseous findings. DATA REPOSITORY: RADIATION DOSE DELIVERED:
--- NOTE | 2022-07-09 10:28 | ED.GENADUL_ITS ---
Discharge Plan Disposition Patient Disposition: HOME Condition: Stable Discharge Details Clinical Impression: Fall down stairs, Sprain of great toe, left Primary Care Provider: Lina Chester ED Provider: Raza Agustin Home Meds and New Rx's Prescriptions: Continued methadone [Dolophine] 5 MG tablet 50 mg PO DAILY Taper: Prednisone 20mg taper 80 mg Daily for 2 Days and 0 Hour 60 mg Daily for 2 Days and 0 Hour 40 mg Daily for 2 Days and 0 Hour 20 mg Daily for 2 Days and 0 Hour 10 mg Daily for 2 Days and 0 Hour Label Comments: is on a blind taper so he is unaware of the dose aspirin 81 mg Tablet,Delayed Release (Dr/Ec) 81 mg PO DAILY gabapentin 300 mg capsule 2 cap PO TID Label Comments: TAKE TWO CAPSULES BY MOUTH THREE TIMES A DAY prasugrel 10 mg tablet 1 tab PO DAILY Discharge Instructions Instructions: Foot Sprain (ED), Fall Prevention (ED) Additional Instructions: Use postoperative orthopedic shoe to splint your foot over the next 1 to 2 weeks. Rest and elevate your foot. If pain persists or you notice any difficulty with movement of your toes or foot, please follow-up with orthopedics. Please contact your primary care physician to arrange follow-up. Return to the ER immediately for any worsening or new concerning symptoms. Referrals: Lina Chester [Primary Care Provider] - Medical Decision Making 36-year-old male here after fall down 13 stairs yesterday morning with persistent left foot and proximal lower leg pain. Concern for fracture versus contusion. X-ray of the left foot was reviewed and interpreted by radiology: negative X-ray of the left tib-fib reviewed and interpreted by radiology: negative Suspect sprain versus contusion. Plan for postop orthopedic shoe for splinting. Offered crutches and patient declined. Plan for outpatient follow-up. Usual customary discharge instructions reviewed with patient. HPI General Mode of arrival: ambulatory . Date/Time Provider Initiated Documentation: 07/09/22 09:41 . Limitations to Documentation: no limitations . Information obtained by: patient . HPI Narrative: 36-year-old male with history of intracranial aneurysm, status post shunt placement, here after fall down flight of stairs yesterday morning, with chief complaint of left foot pain. Patient notes he has been unstable with walking since treated. Patient notes he is walking barefoot and tripped and fell down the stairs. Foot is painful dorsally and medially at the base of his first toe and second toe. Pain is moderate and worse with ambulation and on palpation. No associated numbness. Patient also notes some pain proximal left lower leg. Patient did hit his head during the fall but did not lose consciousness. He has no headache. He denies visual change. No numbness or weakness. No neck pain or back pain. No chest pain or abdominal pain. Related Data Home Medications Medication Instructions Recorded Confirmed methadone 5 mg tablet (Dolophine) 50 mg PO DAILY 07/07/17 07/09/22 aspirin 81 mg tablet,delayed 81 mg PO DAILY 07/09/22 07/09/22 release gabapentin 300 mg capsule 2 cap PO TID 07/09/22 07/09/22 prasugrel 10 mg tablet 1 tab PO DAILY 07/09/22 07/09/22 Allergies Allergy/AdvReac Type Severity Reaction Status Date / Time No Known Allergies Allergy Unverified 07/09/22 09:33 General Stated Complaint: Trauma LUIS A: 3 Review of Systems All systems reviewed & are unremarkable except as noted in HPI and below Gastrointestinal Gastrointestinal: Denies abdominal pain Musculoskeletal Musculoskeletal: Reports as per HPI PFSH All Active Problems (Updated 07/09/22 @ 10:53 by Raza Agustin MD) Fall down stairs (Acute) Sprain of great toe, left (Acute) Social History Smoking/Tobacco Use Status: Former Tobacco Use Quit Date: 07/09/12 Smoking risk assessment performed?: Yes Alcohol Intake: current Alcohol Intake frequency: a few times a week Alcohol type: beer Drug use: Current Sobriety Substance use type: heroin Details: goes to the methadone clinic. sober from heroin for 5 weeks. Do you feel safe at home: Yes Do you feel safe in your relationship?: Yes Exam Const General: cooperative and no acute distress HENMT Head: normocephalic and atraumatic Mouth: moist mucous membranes Eyes EOM: EOM intact bilaterally Neck Neck: trachea midline Resp Auscultation: clear to auscultation bilaterally, no rales, no rhonchi and no wheezes Cardio Rate: regular rate and not tachycardic Rhythm: regular rhythm GI Palpation: soft, not firm, no guarding, no masses, not rigid and nontender Back/Spine/Pelvis Cervical Spine: No cervical spinal tenderness Thoracic/Lumbar Spine: thoracic and lumbar spine normal to inspection, No thoracic spinal tenderness and No lumbar spinal tenderness Skin General skin exam: no rashes or lesions noted Neuro General: patient alert, patient awake, patient oriented x3 and tone normal Extrem General: no edema Left lower extremity: lower leg Details: tenderness Location: of the proximal tibia; no localized swelling, ankle Details: normal to inspection and foot Details: tenderness Location: of the dorsal foot and of the great toe Location: at the MTP joint and ecchymosis (Base of the first and second toes) Psych Appearance: grossly normal Mental Status: mental status grossly normal Course Vital Signs Vital signs: Vital Signs Temperature 36.6 C 07/09/22 09:26 Pulse 93 H 07/09/22 09:26 Respiratory Rate 16 07/09/22 09:26 Blood Pressure 137/79 07/09/22 09:26 Pulse Oximetry 100 07/09/22 09:26 Temperature 36.6 C 07/09/22 09:26 Pulse 93 H 07/09/22 09:26 Respiratory Rate 16 07/09/22 09:26 Respiratory Effort Non-Labored 07/09/22 10:24 Respiratory Depth Normal 07/09/22 09:34 Respiratory Pattern Normal 07/09/22 09:34 Blood Pressure 137/79 07/09/22 09:26 Blood Pressure Position Sitting 07/09/22 09:26 Pulse Oximetry 100 07/09/22 09:26 Oxygen Delivery Method Room Air 07/09/22 09:26 Oxygen Flow Rate 0 07/09/22 09:26 Pain Level 8 07/09/22 09:34 PAWSS Have you Been Recently Intoxicated or Drunk Within the Last 30 days?: No Have you Ever Experienced Previous Episodes of Alcohol Withdrawal?: No Have you ever Experienced Withdrawal Seizures?: No Have you ever Experienced Delirium Tremens(DT)s?: No Have you ever undergone Alcohol Rehabilitation Treatment (i.e, inpt ot outpatient treatment programs)?: No Have you ever Experienced Blackouts?: No Have you ever Combined Alcohol with other Downers within the last 90 days?: No Have you ever Combined Alcohol with any other Substance of Abuse during the last 90 days?: No Positive Blood Alcohol level on Presentation? [PCS.BAL]: No Evidence of Increased Autonomic Activity (i.e. HR>120, tremor, sweating, agitation, nausea)?: No Result: 0
[2022-07-09 11:13] VITALS: BP 112/70; PULSE 75; RESP 17; TEMP 36.5; O2SAT 98
== END 2022-07-09 11:18 | disposition home or self-care (01) ==
PROVIDERS: Emergency Provider Student in an Organized Health Care Education/Training Program; PCP Family Medicine
DX: S93.502A Unspecified sprain of left great toe, initial encounter (principal); W10.9XXA Fall (on) (from) unspecified stairs and steps, initial encounter
CPT/HCPCS: 99284; 73590; 73630; 99282

== ENCOUNTER 2023-06-24 08:43 | Emergency (ER) | payer MEDICAID, SELFPAY ==
[2023-06-24 08:46] VITALS: BP 133/101; PULSE 72; RESP 22; TEMP 36.8; O2SAT 94
--- NOTE | 2023-06-24 09:03 | W.ED.GENAD ---
Discharge Plan Disposition Patient Disposition: Home Discharge Details Chief Complaint: Abd Prob Clinical Impression: Left flank pain Primary Care Provider: Lina Chester ED Provider: Omer Renteria Home Meds and New Rx's Prescriptions: No Action methadone [Dolophine] 5 MG tablet 50 mg PO DAILY aspirin 81 mg Tablet,Delayed Release (Dr/Ec) 81 mg PO DAILY gabapentin 300 mg capsule 2 cap PO TID Patient Comments: TAKE TWO CAPSULES BY MOUTH THREE TIMES A DAY prasugrel 10 mg tablet 1 tab PO DAILY Discharge Instructions Instructions: Flank Pain (ED) Additional Instructions: At this time as we discussed together your laboratory work-up demonstrates reassuring stability. Your hemoglobin levels and platelet levels appear to be at your normal baseline limits. Your CAT scan shows no evidence of infarction for your spleen or evidence of a clot or thrombus. After discussion with hematology they do not recommend emergent transfusion at this time. They do recommend close follow-up with them at [facility]. We have placed a referral on your behalf. They should contact you with the appointment within the next few weeks. In the meantime please take plenty of fluids and stay well-hydrated. You can take 1000 mg of Tylenol every 6 hours as needed for pain. If you notice any worsening of your symptoms, or any new symptoms such as vomiting, diarrhea, fever, chills, shortness of breath, chest pain, numbness, weakness, or fainting , please return immediately to the emergency department for reevaluation. Please follow up with your primary care provider as soon as possible for reassessment and reevaluation. As always, it was a pleasure participating in your medical care today. 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 Patient states that he has had mild on and off pain for the past few days. He denies any vomiting, no diarrhea, no burning with urination or hematuria. No urinary frequency. Pain is persistent in nature. It does not come and go. The pain initially started in the left back/flank and has been moving anteriorly slightly over the last day or so. He has also noticed an increase in bruising capability over the last month. He denies any medication changes. He does take a daily 81 mg aspirin. He denies fever or chills. He denies any sore throat or headache or neck pain. He denies any chest pain or cough. He does admit to feeling notably fatigued over the last 2 weeks. So much so that he feels like he could fall asleep while standing. He denies any history of transfusions in the past. Physical exam demonstrates scattered bruises, left flank, left epigastric and left-sided abdominal pain and tenderness. Mild voluntary guarding. No rebound. No genital tenderness. No groin tenderness. Patient denies any falls or traumas recently. He feels that his bruises of come about from just rubbing up against doorways and small nontraumatic events. Differential is concerning for splenic infarcts, splenomegaly, mono, kidney stone, less likely splenic rupture. Will get CT imaging to further evaluate. Patient does not want anything for pain at this time. We will check for mono, type and screen, monitor closely and reassess. 11:55 AM Laboratory work-up is returned, hemoglobin 11.7, hematocrit 38.4, MCV 64, platelet count 225, these are actually well within normal limits for the patient chronically. Renal function normal, monotest negative, liver function normal. Lipase normal. Urinalysis shows no significant RBCs. CT scan demonstrates no acute process per radiology. No evidence of splenic infarct. Patient has received a liter of fluids. Pain remained stable. He still has not asked for anything for pain. We did contact [facility] and I spoke with of hematology. We reviewed labs and images. At this time with no evidence of infarct or thrombus, and with stable labs she does not see a recommendation for emergent transfusion. 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 She does recommend close outpatient hematology follow-up. We will place a referral for this. Patient is otherwise stable. Symptoms inconsistent with splenic infarct, tumor or mass, or other acute life-threatening etiology at this time. Will recommend Tylenol at home, continued fluids, and close follow-up. Patient otherwise stable. Discussed red flags for which to return. I have extensively reviewed the treatment plan and discharge instructions with the patient. I have addressed all patient concerns at this time. The patient was made aware of what symptoms to monitor for that would warrant a return to the emergency department. Discussed the plan with the patient, they demonstrate verbal understanding and agreement with our assessment and plan at this time. The documentation in this chart was dictated using [employer] dictation software. Please excuse any dictation errors. FINDINGS: ABDOMEN: Lung Bases: There is dependent atelectasis in the lung bases. Liver: Normal density. No measurable mass. Portal, Superior Mesenteric, and Splenic Veins: Unremarkable. Gallbladder and Biliary Tract: Status post cholecystectomy. There is no biliary ductal dilatation. Pancreas: Normal density, no abnormal calcifications or inflammatory process. Spleen: Normal. Adrenals: No masses seen. Kidneys: Normal size, contour and axis. Right nephrolithiasis. No evidence of obstructive uropathy. No masses seen. Abdominal Aorta: Abdominal portion non-dilated. The splenic artery is patent. Bowel: No obstruction or bowel wall thickening. Appendix is unremarkable. Peritoneal Cavity: No ascites, collection or mesenteric inflammatory response. No free air.There is tubing seen within the abdominal cavity and along the anterior abdominal wall which may reflect [employer] shunt. No fluid collection is seen at the tip of the abdominal tubing. There is no pneumoperitoneum. Lymph Nodes: Within normal limits. Bones: Within normal limits for the patient's age. Soft Tissues: There is a small fat containing umbilical hernia. PELVIS: Bladder: Symmetric distention, no gross wall thickening. Reproductive Organs: Unremarkable as visualized. Lymph Nodes: Within normal limits. Bones: Within normal limits for the patient's age. IMPRESSION: 1. No acute abdominal or pelvic process. 2. Normal spleen, splenic vein and splenic artery. 3. Findings were discussed with the emergency department at 10:14 a.m. on 06/24/2023. HPI General Date/Time Provider Initiated Documentation: 06/24/23 08:44. 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 Patient states that he has had mild on and off pain for the past few days. He denies any vomiting, no diarrhea, no burning with urination or hematuria. No urinary frequency. Pain is persistent in nature. It does not come and go. The pain initially started in the left back/flank and has been moving anteriorly slightly over the last day or so. He has also noticed an increase in bruising capability over the last month. He denies any medication changes. He does take a daily 81 mg aspirin. He denies fever or chills. He denies any sore throat or headache or neck pain. He denies any chest pain or cough. He does admit to feeling notably fatigued over the last 2 weeks. So much so that he feels like he could fall asleep while standing. Related Data Home Medications Medication Instructions Recorded Confirmed methadone 5 mg tablet (Dolophine) 50 mg PO DAILY 07/07/17 06/24/23 aspirin 81 mg tablet,delayed 81 mg PO DAILY 07/09/22 06/24/23 release gabapentin 300 mg capsule 2 cap PO TID 07/09/22 06/24/23 prasugrel 10 mg tablet 1 tab PO DAILY 07/09/22 06/24/23 Allergies Allergy/AdvReac Type Severity Reaction Status Date / Time No Known Allergies Allergy Unverified 07/09/22 09:33 General Stated Complaint: Abd Prob LUIS A: 3 Review of Systems All systems reviewed & are unremarkable except as noted in HPI and below PFSH All Active Problems (Updated 06/24/23 @ 11:59 by Omer eRnteria DO) Left flank pain (Acute) Social History Smoking/Tobacco Use Status: Current every day Tobacco Type: smokeless tobacco Smoking risk assessment performed?: Yes Alcohol Intake: current Alcohol Intake frequency: a few times a week Alcohol type: beer Drug use: Current Sobriety Substance use type: former substance user and heroin Details: on methadone Housing: apartment Do you feel safe at home: Yes Do you feel safe in your relationship?: Yes Exam Narrative Exam Narrative: 1.Const: Well-nourished, Well-developed, appearing stated age 2.Eyes: PERRL, no conjunctival injection, and symmetrical lids. 3.ENT: Atraumatic external nose and ears. Moist MM. Neck: Symmetric, trachea midline, No thyromegaly. No erythema in the posterior oropharynx. No tonsillar enlargement. 4.CVS: +S1/S2, No murmurs or gallops. Peripheral pulses 2+ and equal in all extremities. Brisk capillary refill in all extremities. 5.RESP: Unlabored respiratory effort. Clear to auscultation bilaterally. No wheezes rales or rhonchi 6.GI: Soft, no guarding or rebound. Mild tenderness in the epigastric left flank left abdomen. Challenging to feel for splenomegaly secondary to tenderness. 7.MSK: Normocephalic/Atraumatic, Extremities w/o deformity or ttp No cyanosis or clubbing, Normal movement of all extremities 8.Skin: Warm, Dry. Scattered bruises on the upper extremities. 9.Neuro: cushion installer II-XII grossly intact. Sensation grossly intact, no focal neurologic deficits. 10.Psych: (AAO) x3. Appropriate mood and affect Course Vital Signs Vital signs: Vital Signs Temperature 36.8 C 06/24/23 08:46 Pulse 72 06/24/23 08:46 Respiratory Rate 22 06/24/23 08:46 Blood Pressure 133/101 H 06/24/23 08:46 Pulse Oximetry 94 06/24/23 08:46 Temperature 36.8 C 06/24/23 08:46 Temperature Source Oral 06/24/23 08:46 Pulse 72 06/24/23 08:46 Respiratory Rate 22 06/24/23 08:46 Respiratory Effort Normal, Non-Labored 06/24/23 08:54 Blood Pressure 133/101 H 06/24/23 08:46 Blood Pressure Position Sitting 06/24/23 08:46 Pulse Oximetry 94 06/24/23 08:46 Oxygen Delivery Method Room Air 06/24/23 08:46 Oxygen Flow Rate 0 06/24/23 08:46
[2023-06-24 09:13] LABS: Absolute Basophil Count 0.02 10^3/uL (0.0-0.2); Absolute Eosinophil Count 0.07 10^3/uL (0.0-0.7); Absolute Lymphocyte Count 1.46 10^3/uL (1.2-3.4); Absolute Monocyte Count 0.24 10^3/uL (0.1-0.8); Absolute Neutrophil Count 2.55 10^3/uL (1.2-6.7); Basophils % 0.5; Eosinophils % 1.6; HCT 38.4 % (40.0-50.0); HGB 11.7 g/dL (13.5-17.5); Lymphocytes % 33.6; MCH 19.6 pg (27.0-33.0); MCHC 30.5 % (32.0-36.0); MCV 64 fL (80-95); Monocytes % 5.5; Neutrophils % 58.8; RBC 5.97 10^6/uL (4.36-5.78); RDW 15.3 % (11.8-14.1); RDW-SD 34.3 fL; WBC 4.34 10^3/uL (4.4-10.8)
[2023-06-24 09:25] LABS: PTT Activated 24.8 sec (23.6-32.8)
[2023-06-24 09:26] LABS: Mono Screening Negative (Negative)
[2023-06-24 09:32] LABS: ALT 24 U/L (16-63); AST 15 U/L (15-37); Albumin 4.4 g/dL (3.4-5.0); Alkaline Phosphatase 69 U/L (46-116); Anion Gap 8.8 mmol/L (3-11); BUN 16 mg/dL (7-18); Bilirubin, Total 0.5 mg/dL (0.2-1.0); CO2 29.2 mmol/L (21.0-32.0); CREATININE 1.2 mg/dL (0.70-1.30); Calcium 9.4 mg/dL (8.5-10.1); Chloride 104 mmol/L (98-107); Estimated GFR 80.38 (mL/min/1.73m2); Glucose 98 mg/dL (74-106); Lipase 55 U/L (16-77); Potassium 3.6 mmol/L (3.5-5.1); Sodium 142 mmol/L (136-145); Total Protein 7.6 g/dL (6.4-8.2)
[2023-06-24 09:42] LABS: Diff Comment Diff Reviewed; Microcytosis 2+; Platelet Count 225 10^3/uL (130-400); Poikilocytes 2+; Polychromasia Present
[2023-06-24] MEDS: Normal Saline - Diluent 50 ML VIAL IJ (09:43)
[2023-06-24] MEDS: Omnipaque 350 MG/ML 100 ML BTL IJ (09:44)
--- NOTE | 2023-06-24 09:45 | DI.CT_ITS ---
Exam(s) CT ABDOMEN PELVIS W EXAM: CT ABDOMEN PELVIS W CLINICAL HISTORY: L flank pain, hx of thalassemia/ spleen TECHNIQUE: Imaging Protocol: Axial computed tomography images with coronal and sagittal reformatted images were created and reviewed CONTRAST MATERIAL: Intravenous: Omnipaque 350 Contrast volume:100 mL Oral: No COMPARISON: CT ABD PELVIS WITH CONTRAST from 12/21/[address] BRAIN NECK CTA from 03/09/2022 FINDINGS: ABDOMEN: Lung Bases: There is dependent atelectasis in the lung bases. Liver: Normal density. No measurable mass. Portal, Superior Mesenteric, and Splenic Veins: Unremarkable. Gallbladder and Biliary Tract: Status post cholecystectomy. There is no biliary ductal dilatation. Pancreas: Normal density, no abnormal calcifications or inflammatory process. Spleen: Normal. Adrenals: No masses seen. Kidneys: Normal size, contour and axis. Right nephrolithiasis. No evidence of obstructive uropathy. No masses seen. Abdominal Aorta: Abdominal portion non-dilated. The splenic artery is patent. Bowel: No obstruction or bowel wall thickening. Appendix is unremarkable. Peritoneal Cavity: No ascites, collection or mesenteric inflammatory response. No free air.There is tubing seen within the abdominal cavity and along the anterior abdominal wall which may reflect [employer] sh unt. No fluid collection is seen at the tip of the abdominal tubing. There is no pneumoperitoneum. Lymph Nodes: Within normal limits. Bones: Within normal limits for the patient's age. Soft Tissues: There is a small fat containing umbilical hernia. PELVIS: Bladder: Symmetric distention, no gross wall thickening. Reproductive Organs: Unremarkable as visualized. Lymph Nodes: Within normal limits. Bones: Within normal limits for the patient's age. IMPRESSION: 1. No acute abdominal or pelvic process. 2. Normal spleen, splenic vein and splenic artery. 3. Findings were discussed with the emergency department at 10:14 a.m. on 06/24/2023. RADIATION DOSE DELIVERED: Total DLP DATA REPOSITORY: All CT scans at this facility are submitted to the National Radiology Data Registry (NRDR) Dose Index Registry (DIR) with the [employer] (ACR). RADIATION OPTIMIZATION: All CT scans at this facility use at least one of these dose optimization te chniques: automated exposure control; mA and/or kV adjustment per patient size (includes targeted exa ms where dose is matched to clinical indication); or iterative reconstruction.
[2023-06-24] MEDS: Normal Saline 1,000 ML 1000 ML IV (10:12)
[2023-06-24 10:18] LABS: Bilirubin Negative (Negative); Blood Small (Negative); Clarity Clear (Clear); Glucose Negative (Negative); Ketones Negative (Negative); Leukocyte Esterase Negative (Negative); Nitrite Negative (Negative); Specific Gravity 1.015 (1.005-1.025); Urobilinogen 0.2 mg/dL (Up to 0.2)
[2023-06-24 10:35] LABS: Bacteria Negative HPF (Negative); Epithelial Cells Negative HPF (Negative); RBC 0-2 HPF (0-2); WBC 0-2 HPF (0-5)
[2023-06-24 10:36] LABS: C & S Indicated? No; Casts Negative LPF (Negative); Crystals Negative HPF (Negative); Mucus Trace (Negative)
[2023-06-24 10:37] LABS: Ferritin 130 ng/mL (26-388)
[2023-06-24] MEDS: Acetaminophen 500 MG TAB 1000 MG PO (12:04)
[2023-06-24 12:07] VITALS: BP 127/84; PULSE 60; O2SAT 100
[2023-06-24 12:43] LABS: Iron 64 ug/dL (65-175); Total Iron Binding Capacity 325 ug/dL (250-450); Transferrin Sat 20 % (20-55)
--- NOTE | 2023-06-24 16:56 | NUR.NOTE ---
Referral faxed to [facility] for Hematology. The Dr would like a follow up to the ER visit in 2 weeks.
== END 2023-06-24 12:07 | disposition home or self-care (01) ==
PROVIDERS: Emergency Provider Student in an Organized Health Care Education/Training Program; PCP Family Medicine
DX: R10.30 Lower abdominal pain, unspecified (principal); D56.9 Thalassemia, unspecified; F17.290 Nicotine dependence, other tobacco product, uncomplicated; Z79.82 Long term (current) use of aspirin
CPT/HCPCS: 36415; 80053; 83690; 86850; 86900; 86901; 96360; 99285; 74177; 81003; 81015; 82728; 83540; 83550; 83605; 85025; 85610; 85730; 86308; 99284; J3490

== ENCOUNTER 2024-04-20 14:28 | Emergency (ER) | payer MEDICAID, SELFPAY ==
[2024-04-20] VITALS (42 sets, daily range): BP systolic 108–135; BP diastolic 65–79; PULSE 46–75; RESP 7–38; TEMP 36.6; O2SAT 92–99
--- NOTE | 2024-04-20 14:15 | RT.EKG_ITS ---
APPROVED REPORT Exam: Resting ECG Reason for Exam: dizziness Patient Location: E HR:55 bpm ECG Measurements Heart Rate 55 AXIS WI 165 P 20 QRSd 90 QRS 39 QT 413 T 41 QTc 395 Conclusion Sinus bradycardia...rate< 60
[2024-04-20] MEDS: Normal Saline - Diluent 50 ML VIAL IJ (14:56)
[2024-04-20] MEDS: Omnipaque 350 MG/ML 100 ML BTL 70 ML IJ (14:58)
--- NOTE | 2024-04-20 15:05 | DI.CT_ITS ---
Exam(s) CT BRAIN NECK CTA EXAM: CT BRAIN NECK CTA CLINICAL HISTORY: Stroke eval, hx aneurysm. TECHNIQUE: Imaging Protocol: Axial CT angiography was performed with multi-slice acquisition and mu lti-planar and MIP reconstructions. CONTRAST MATERIAL: Intravenous: Omnipaque 350 Contrast volume:70 ml COMPARISON: CT CT BRAIN NECK CTA from 03/09/[address] HEAD WO from 03/09/2022 FINDINGS: CT Head W/O and W contrast: Ventricles and Extra axial spaces: Normal in size and morphology for the patient's age. Shunt now n oted with tip in right lateral ventricle. Hemorrhage: None. Cerebral parenchyma: No evidence of acute infarct or mass. Midline shift: None. Brainstem/Cerebellum: Cerebellar hemispheres now appears somewhat atrophic. Air area of low signal n oted in peripheral, lateral right cerebellar hemisphere. Findings could represent infarct of indeter minate age. Calvarium: Normal. Visualized Paranasal sinuses/Mastoids: Clear. Soft Tissues: Unremarkable. Enhancement: Normal. CTA Brain W: Internal Carotid Arteries: Petrous: Normal. Cavernous: Normal. Cerebral: Normal. Middle Cerebral Arteries: Right: No aneurysm, occlusion or significant stenosis. Left: No aneurysm, occlusion or significant stenosis. Anterior Cerebral Arteries: Right: No aneurysm, occlusion or significant stenosis. Left: No aneurysm, occlusion or significant stenosis. Posterior cerebral Arteries: Right: No aneurysm, occlusion or significant stenosis. Left: No aneurysm, occlusion or significant stenosis. Vertebral Arteries: Right: No aneurysm, occlusion or significant stenosis. Left: No aneurysm, occlusion or significant stenosis. Basilar Artery: No aneurysm, occlusion or significant stenosis. None stent now noted in distal righ t vertebral artery and proximal basilar artery. The stent is patent. CTA Neck W: Common Carotid: Right: No dissection, occlusion or significant stenosis. Left: No dissection, occlusion or significant stenosis. External Carotid: Right: No dissection, occlusion or significant stenosis. Left: No dissection, occlusion or significant stenosis. Internal Carotid: Right: No dissection, occlusion or significant stenosis. Left: No dissection, occlusion or significant stenosis. Vertebral Artery: Right: No dissection, occlusion or significant stenosis. Left: No dissection, occlusion or significant stenosis. Lung Apices: No acute findings. Bones: No acute abnormality. Soft Tissues: Normal. IMPRESSION: 1. CTA brain: Stent now present in distal right vertebral artery and proximal basilar artery. Stent is patent. No evidence of aneurysm. 2. Head CT: No evidence of hemorrhage. Area of low attenuation in the right cerebellar hemisphere cou ld represent subacute to old infarct. The cerebellar hemispheres now appear atrophic compared to the previous exam. 3. CTA neck: Normal CTA examination of the neck. Findings called to Dr. Diana of the emergency department. RADIATION DOSE DELIVERED: Total DLP DATA REPOSITORY: All CT scans at this facility are submitted to the National Radiology Data Registry (NRDR) Dose Index Registry (DIR) with the [employer] (ACR). RADIATION OPTIMIZATION: All CT scans at this facility use at least one of these dose optimization te chniques: automated exposure control; mA and/or kV adjustment per patient size (includes targeted exa ms where dose is matched to clinical indication); or iterative reconstruction.
[2024-04-20 15:09] LABS: Abs Immature Grans 0.01 10^3/uL (0.0-0.06); Absolute Basophil Count 0.02 10^3/uL (0.0-0.2); Absolute Eosinophil Count 0.07 10^3/uL (0.0-0.7); Absolute Lymphocyte Count 1.74 10^3/uL (1.2-3.4); Absolute Monocyte Count 0.22 10^3/uL (0.1-0.8); Absolute Neutrophil Count 3.12 10^3/uL (1.2-6.7); Basophils % 0.4 %; Eosinophils % 1.4 %; HCT 35.5 % (40.0-50.0); Immature Grans % 0.2 %; Lymphocytes % 33.6 %; MCH 20.1 pg (27.0-33.0); MCV 65 fL (80-95); MPV 10.1 fL (8.0-11.0); Monocytes % 4.2 %; Neutrophils % 60.2 %; Platelet Count 242 10^3/uL (130-400); RBC 5.48 10^6/uL (4.36-5.78); RDW 15.3 % (11.8-14.1); RDW-SD 34.5 fL; WBC 5.18 10^3/uL (4.4-10.8)
[2024-04-20 15:25] LABS: ALT 46 U/L (16-63); AST 23 U/L (15-37); Albumin 4.4 g/dL (3.4-5.0); Alkaline Phosphatase 81 U/L (46-116); Anion Gap 10.9 mmol/L (3-11); BUN 15 mg/dL (7-18); Bilirubin, Total 0.57 mg/dL (0.2-1.0); CO2 26.1 mmol/L (21.0-32.0); CREATININE 1.5 mg/dL (0.70-1.30); Calcium 9.4 mg/dL (8.5-10.1); Chloride 107 mmol/L (98-107); Estimated GFR 61.11 (mL/min/1.73m2); Glucose 123 mg/dL (74-106); Magnesium 2.2 mg/dL (1.8-2.4); Potassium 3.7 mmol/L (3.5-5.1); Sodium 144 mmol/L (136-145); Total Protein 7.6 g/dL (6.4-8.2)
[2024-04-20 15:28] LABS: Troponin I < 50 ng/L (< or =60)
[2024-04-20 15:41] LABS: Diff Comment RBC Morph Reviewed
[2024-04-20 15:42] LABS: Hypochromasia 1+; Microcytosis 2+
--- NOTE | 2024-04-20 16:21 | W.ED.GENAD ---
Discharge Plan Discharge Details Chief Complaint: CVA/TIA Primary Care Provider: Lina Chester ED Provider: Samia Diana Home Meds and New Rx's Prescriptions: No Action gabapentin 400 mg capsule 400 mg PO TID Patient Comments: TAKE ONE CAPSULE BY MOUTH THREE TIMES A DAY gabapentin 600 mg tablet 600 mg PO QHS Patient Comments: TAKE ONE TABLET BY MOUTH AT BEDTIME methadone [Dolophine] 5 MG tablet 50 mg PO DAILY aspirin 81 mg Tablet,Delayed Release (Dr/Ec) 81 mg PO DAILY prasugrel 10 mg tablet 1 tab PO DAILY HPI General Mode of arrival: ambulatory. Date/Time Provider Initiated Documentation: 04/20/24 14:29. Limitations to Documentation: no limitations. Information obtained by: patient, family and old records reviewed. HPI Narrative: MDM: In brief, this is a 38-year-old male patient presenting for evaluation of vertigo, general malaise, gaze palsy. Differential includes but is not limited to CVA, intracranial hemorrhage, aneurysm, recrudescence, shunt malfunction. I did consider peripheral vertiginous causes including BPPV, M?ni?re's disease, labyrinthitis. No significant reported trauma, no recent fevers or changes in mental status to suggest meningitis or encephalitis. Given the rapid presentation to care with a last seen well 2 PM, we proceeded immediately to CT scanner for CTA brain and neck, and consulted [facility] telehealth. Laboratory studies were obtained per protocols. NIH score 1. ED Course: I reviewed the patient's laboratory studies, which show no white blood cell count elevation, mild anemia to 11 and no thrombocytopenia. Chemistry panel without significant electrolyte derangement, kidney function with an elevated creatinine to 1.5, no evidence of liver dysfunction. Troponin was negative. CT scan was independently interpreted by myself and reviewed with the radiologist and teleneurologist, and shows no evidence of intracranial hemorrhage, still stent occlusion, or other arterial abnormality. EMERGENCY MANAGEMENT CONSULTANT shunt series was obtained and reviewed by [facility] neurosurgery, with no abnormalities to account for the patient's symptoms. The patient did remain symptomatic in the emergency department, and neurology recommended MRI, which unfortunately cannot be completed in our emergency department this evening. Given the patient's complicated history with EMERGENCY MANAGEMENT CONSULTANT shunt, neurosurgery and this provider feel that the patient may be better served at [facility] were all for specialists are in house, but I did signout this patient to the oncoming provider prior to final disposition and acceptance. Anticipate that if the patient is not accepted for transfer to [facility] that he will remain here in the emergency department versus admitted to our floor for MRI in the morning to evaluate for infarct. I provided the patient with his home gabapentin, and he remained hemodynamically appropriate throughout his time under my care. Samia Diana MD HPI: This is a 38-year-old male patient with a past medical history most notable for aneurysm 2 years ago, requiring basilar artery stenting and a EMERGENCY MANAGEMENT CONSULTANT shunt, presenting for evaluation of vertigo. Patient reports that yesterday he had a brief episode of vertigo while riding on the ATV, took a nap and woke up and was feeling normal. Today, the patient states that half an hour prior to presentation at our emergency department (approximately 2 PM) he was working and had a sudden onset of feeling like he was drunk or spinning. He reports that this is worse when he looks to the right, was not associated with any nausea vomiting, headache, changes in vision, and he has not sustained any trauma or falls. He states that he feels unsteady when he walks, denies other weakness, sensory deficits. The patient reports that he has been in his normal state of health. He is taking all his medications as prescribed including his daily baby aspirin. Eating and drinking normally for him. Exam: Gen: Awake and alert, in no apparent distress HEENT: Non-icteric sclera, pupils equal and reactive at 3 mm bilaterally, right sided gaze palsy with exacerbation of the patient's vertiginous symptoms, no visual field cuts, no reported visual acuity changes. Neck: Supple Lungs: No apparent respiratory distress, normal respiratory effort. CV: Appears well perfused, strong distal pulses Abdomen: Non-distended MSK: Moves 4 extremities without apparent limitation in ROM Skin: Visualized skin without rashes, cyanosis. Neuro: Cranial nerves II through XII intact and symmetrical bilaterally with the exception of the gaze palsy noted above. 5 out of 5 strength x 4 extremities, no pronator drift, steady but careful gait, with no noted ataxia. The patient has accurate and symmetrical with her breathing with [id number] testing. Alert and oriented, no extinction or inattention appreciated. Psych: Appropriate for situation. Related Data Home Medications ?Medication ?Instructions ?Recorded ?Confirmed methadone 5 mg tablet (Dolophine) 50 mg PO DAILY 07/07/17 04/20/24 aspirin 81 mg tablet,delayed 81 mg PO DAILY 07/09/22 04/20/24 release prasugrel 10 mg tablet 1 tab PO DAILY 07/09/22 04/20/24 gabapentin 400 mg capsule 400 mg PO TID 04/20/24 04/20/24 gabapentin 600 mg tablet 600 mg PO QHS 04/20/24 04/20/24 Allergies Allergy/AdvReac Type Severity Reaction Status Date / Time No Known Allergies Allergy Unverified 04/20/24 14:35 General Stated Complaint: CVA/TIA LUIS A: 2 Course Vital Signs Vital signs: Vital Signs Temperature 36.6 C 04/20/24 14:30 Pulse 59 L 04/20/24 14:30 Respiratory Rate 10 L 04/20/24 14:30 Blood Pressure 135/79 04/20/24 14:30 Pulse Oximetry 95 04/20/24 14:30 Temperature 36.6 C 04/20/24 14:30 Temperature Source Skin 04/20/24 14:30 Pulse 59 L 04/20/24 14:30 Respiratory Rate 10 L 04/20/24 14:30 Respiratory Effort Normal, Non-Labored 04/20/24 15:14 Blood Pressure 135/79 04/20/24 14:30 Blood Pressure Position Sitting 04/20/24 14:30 Pulse Oximetry 95 04/20/24 14:30 Oxygen Delivery Method Room Air 04/20/24 14:30 Oxygen Flow Rate 0 04/20/24 14:30 Pain Level 0 04/20/24 14:30 Lab/Test Results Lab/Test Results: Laboratory Tests Range/Units 04/20/24 14:50 WBC (4.4-10.8) 10^3/uL 5.18 RBC (4.36-5.78) 10^6/uL 5.48 Hgb (13.5-17.5) g/dL 11.0 L Hct (40.0-50.0) % 35.5 L MCV (80-95) fL 65 L MCH (27.0-33.0) pg 20.1 L MCHC (32.0-36.0) % 31.0 L RDW (11.8-14.1) % 15.3 H Plt Count (130-400) 10^3/uL 242 MPV (8.0-11.0) fL 10.1 Immature Gran % % 0.2 Neutrophils % % 60.2 Lymphocytes % % 33.6 Monocytes % % 4.2 Eosinophils % % 1.4 Basophils % % 0.4 Nucleated RBC % (0.0-0.3) % 0.0 Absolute Neutrophils (1.2-6.7) 10^3/uL 3.12 Absolute Lymphocytes (1.2-3.4) 10^3/uL 1.74 Absolute Monocytes (0.1-0.8) 10^3/uL 0.22 Absolute Eosinophils (0.0-0.7) 10^3/uL 0.07 Absolute Basophils (0.0-0.2) 10^3/uL 0.02 RBC Morphology See Below Hypochromasia 1+ Microcytosis 2+ Sodium (136-145) mmol/L 144 Potassium (3.5-5.1) mmol/L 3.7 Chloride (98-107) mmol/L 107 Carbon Dioxide (21.0-32.0) mmol/L 26.1 Anion Gap (3-11) mmol/L 10.9 BUN (7-18) mg/dL 15 Creatinine (0.70-1.30) mg/dL 1.5 H Est GFR (CKD-EPI 2020) (mL/min/1.73m2) 61.11 Glucose (74-106) mg/dL 123 H Calcium (8.5-10.1) mg/dL 9.4 Magnesium (1.8-2.4) mg/dL 2.2 Total Bilirubin (0.2-1.0) mg/dL 0.57 AST (15-37) U/L 23 ALT (16-63) U/L 46 Alkaline Phosphatase (46-116) U/L 81 Troponin I (< or =60) ng/L < 50 Total Protein (6.4-8.2) g/dL 7.6 Albumin (3.4-5.0) g/dL 4.4 Medical Decision Making Quality:[facility] Health Related Social Needs: No Data to Display [facility] Social History Smoking/Tobacco Use Status: Current every day Tobacco Type: smokeless tobacco Smoking risk assessment performed?: Yes Alcohol Intake: current Alcohol Intake frequency: a few times a week Alcohol type: beer Drug use: Current Sobriety 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 CT/CTA unremarkable, EMERGENCY MANAGEMENT CONSULTANT shunt series unremarkable, [facility] neurosurgery without recommendations for intervention, [facility] neuro recommending MRI, would likely benefit from transfer to [facility], pending teleneuro callback. Last updated by Samia Diana MD at 04/20/24 23:50 PAWSS Have you Been Recently Intoxicated or Drunk Within the Last 30 days?: No Have you Ever Experienced Previous Episodes of Alcohol Withdrawal?: No Have you ever Experienced Withdrawal Seizures?: No Have you ever Experienced Delirium Tremens(DT)s?: No Have you ever undergone Alcohol Rehabilitation Treatment (i.e, inpt ot outpatient treatment programs)?: No Have you ever Experienced Blackouts?: No Have you ever Combined Alcohol with other Downers within the last 90 days?: No Have you ever Combined Alcohol with any other Substance of Abuse during the last 90 days?: No Positive Blood Alcohol level on Presentation? [PCS.BAL]: No Evidence of Increased Autonomic Activity (i.e. HR>120, tremor, sweating, agitation, nausea)?: No Result: 0
--- NOTE | 2024-04-20 17:40 | DI.RAD_ITS ---
Exam(s) XR SHUNT SERIES EXAM: XR SHUNT SERIES CLINICAL HISTORY: Eval dysfuntion. TECHNIQUE: 2D digital imaging was performed. COMPARISON: No exams were available for comparison Findings: SKULL: Unremarkable. No fracture or destructive osseous lesion seen. LUNGS: Clear. No pleural abnormality seen. HEART: Normal. MEDIASTINUM: Normal. BOWEL GAS PATTERN: Nondistended bowel loops. No air-fluid levels seen. ABNORMAL COLLECTIONS OF AIR: No abnormal collection of air. No pneumoperitoneum. CALCIFICATIONS: None. No radiopaque renal, ureteral, or bladder calcification. SHUNT CATHETER: Visualized portions of shunt catheter from the level of the skull to the level of the abdomen is continuous without evidence of kink or break. OTHER FINDINGS: Residual contrast in the bladder related to previous CT angiogram. IMPRESSION: 1. Shunt appears intact throughout. 2. No acute pulmonary or abdominal findings. DATA REPOSITORY: RADIATION DOSE DELIVERED:
[2024-04-20] MEDS: Gabapentin 400 MG CAP PO (19:59)
[2024-04-20] MEDS: Gabapentin 300 MG CAP 600 MG PO (23:00)
--- NOTE | 2024-04-20 23:54 | ED.PROG_ITS ---
Date of service: 04/20/24 Time of Service: 23:54 Medical Decision Making This patient was signed out to me. Please see previous notes for H&P and initial eval. In brief, 38yo M with hx prior cerebral basilar artery/stent/SUMMER CAMP COUNSELOR shunt in place presenting with acute vertigo and gaze palsy. CT negative. Needs MRI. Has been discussed with [facility] neurosurgery and teleneurology; neurosurgery declined patient for transfer as no surgical interventions indicated but advised discussing again with neurology for possible transfer with neurology as accepting service. If neurology declines may need to stay at [facility] for MRI in the morning. Spoke with [facility] transfer center; no capacity. On reassessment patient reports vertigo is much improved; does have mild gaze palsy/nystagmus bilaterally with extreme rightward gaze which appears improved based on description of his earlier exam. Given NSGY and teleneruology both feel patient would be served based at a tertiary care facility, reached out to [facility] for potential transfer for MRI and availability of neurology/neurosurgery there. Discussed with [facility] neurology; from their standpoint no indication for emergent/urgent transfer, declined to accept patient. Will plan for MRI at [facility] once available in the morning. Considered admitting to [facility], however ultimately patient likely to either be able to be discharged with outpatient followup or to definitively need tertiary care (neurosurgery vs stroke) depending on results. On reassessment patient is well appearing with reassuring vital signs. No numbness or weakness. Does still have slight vertigo though 'nothing like when I came in'; no dysmetria with [id number], normal gaze. Will be signed out to oncoming physician, plan for MRI, would discuss with [facility] neurology/neurosurgery once results are back to determine disposition/followup plan. Lab Data Lab results reviewed: Yes I reviewed the patient's lab results. 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 CT/CTA unremarkable, SUMMER CAMP COUNSELOR shunt series unremarkable, [facility] neurosurgery without recommendations for intervention, [facility] neuro recommending MRI, would likely benefit from transfer to [facility], pending teleneuro callback. Last updated by Samia Diana MD at 04/20/24 23:50 Discharge Plan Discharge Details Chief Complaint: CVA/TIA Primary Care Provider: Lina Chester ED Provider: Maria Del Rosario Monge Home Meds and New Rx's Prescriptions: No Action gabapentin 400 mg capsule 400 mg PO TID Patient Comments: TAKE ONE CAPSULE BY MOUTH THREE TIMES A DAY gabapentin 600 mg tablet 600 mg PO QHS Patient Comments: TAKE ONE TABLET BY MOUTH AT BEDTIME methadone [Dolophine] 5 MG tablet 50 mg PO DAILY aspirin 81 mg Tablet,Delayed Release (Dr/Ec) 81 mg PO DAILY prasugrel 10 mg tablet 1 tab PO DAILY
--- NOTE | 2024-04-20 23:54 | W.EDPROG ---
Date of service: 04/20/24 Time of Service: 23:54 Medical Decision Making This patient was signed out to me. Please see previous notes for H&P and initial eval. In brief, 38yo M with hx prior cerebral basilar artery/stent/COCKTAIL SERVER shunt in place presenting with acute vertigo and gaze palsy. CT negative. Needs MRI. Has been discussed with [facility] neurosurgery and teleneurology; neurosurgery declined patient for transfer as no surgical interventions indicated but advised discussing again with neurology for possible transfer with neurology as accepting service. If neurology declines may need to stay at [facility] for MRI in the morning. Spoke with [facility] transfer center; no capacity. On reassessment patient reports vertigo is much improved; does have mild gaze palsy/nystagmus bilaterally with extreme rightward gaze which appears improved based on description of his earlier exam. Given NSGY and teleneruology both feel patient would be served based at a tertiary care facility, reached out to [facility] for potential transfer for MRI and availability of neurology/neurosurgery there. Discussed with [facility] neurology; from their standpoint no indication for emergent/urgent transfer, declined to accept patient. Will plan for MRI at [facility] once available in the morning. Considered admitting to [facility], however ultimately patient likely to either be able to be discharged with outpatient followup or to definitively need tertiary care (neurosurgery vs stroke) depending on results. On reassessment patient is well appearing with reassuring vital signs. No numbness or weakness. Does still have slight vertigo though 'nothing like when I came in'; no dysmetria with [id number], normal gaze. Will be signed out to oncoming physician, plan for MRI, would discuss with [facility] neurology/neurosurgery once results are back to determine disposition/followup plan. Lab Data Lab results reviewed: Yes I reviewed the patient's lab results. Quality: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 CT/CTA unremarkable, COCKTAIL SERVER shunt series unremarkable, [facility] neurosurgery without recommendations for intervention, [facility] neuro recommending MRI, would likely benefit from transfer to [facility], pending teleneuro callback. Last updated by Samia Diana MD at 04/20/24 23:50 Discharge Plan Discharge Details Chief Complaint: CVA/TIA Primary Care Provider: Lina Chester ED Provider: Maria Del Rosario Monge Home Meds and New Rx's Prescriptions: No Action gabapentin 400 mg capsule 400 mg PO TID Patient Comments: TAKE ONE CAPSULE BY MOUTH THREE TIMES A DAY gabapentin 600 mg tablet 600 mg PO QHS Patient Comments: TAKE ONE TABLET BY MOUTH AT BEDTIME methadone [Dolophine] 5 MG tablet 50 mg PO DAILY aspirin 81 mg Tablet,Delayed Release (Dr/Ec) 81 mg PO DAILY prasugrel 10 mg tablet 1 tab PO DAILY
[2024-04-21] VITALS (18 sets, daily range): BP systolic 103–140; BP diastolic 54–87; PULSE 46–70; RESP 10–18; TEMP 36.6–37.2; O2SAT 92–100
[2024-04-21] MEDS: Ondansetron 4 MG/2 ML VIAL IVP (06:46)
[2024-04-21] MEDS: Meclizine 25 MG TAB PO (08:18)
[2024-04-21] MEDS: Methadone Liquid 10 MG/ML 50 MG PO (08:18)
[2024-04-21] MEDS: Gabapentin 400 MG CAP PO (08:19)
[2024-04-21] MEDS: Aspirin 81 MG CHEW PO (08:37)
--- NOTE | 2024-04-21 11:37 | W.EDPROG ---
Date of service: 04/21/24 Time of Service: 08:30 Medical Decision Making Patient signed out to me pending MRI, per the MRI techs we need to confirm if his symptoms do not are MRI compatible. Nursing is working on confirming this. She feels better though still has intermittent dizziness sensation, will order meclizine to see if it helps him. MRI techs were having trouble verifying of the stent that he had placed is compatible with an MRI. The patient became frustrated with how long it was taking but understood why we are trying to verify this. The patient has medical decision-making capacity and does not want to wait any longer in the emergency department. He understands risks of leaving and potentially missing cerebral stroke including permanent disability and also down to nasal and no sedation risk. He is choosing to leave AGAINST MEDICAL ADVICE. 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 CT/CTA unremarkable, WHEELCHAIR VAN OPERATOR FIRST RESPONDER shunt series unremarkable, [facility] [place] [place] neurosurgery without recommendations for intervention, [facility] [place] [place] neuro recommending MRI, would likely benefit from transfer to [facility] [place] [place], pending teleneuro callback. Last updated by Samia Diana MD at 04/20/24 23:50 Sign Out Comment: 38yo M, hx prior basilar artery aneurysm with stent and WHEELCHAIR VAN OPERATOR FIRST RESPONDER shunt, presented with vertigo & R gaze palsy. Teleneuro + [facility] [place] [place] neurosurgery consulted; recommended MRI, [facility] [place] [place] with no capacity. Pending MRI, would re-consult neurology/nsgy with results. Last updated by Maria Del Rosario Monge MD at 04/21/24 06:23 Discharge Plan Disposition Patient Disposition: Against Medical Advice Condition: Serious Discharge Details Clinical Impression: Dizziness Primary Care Provider: Lina Chester ED Provider: Patel Prieto Home Meds and New Rx's Prescriptions: Continued gabapentin 400 mg capsule 400 mg PO TID Patient Comments: TAKE ONE CAPSULE BY MOUTH THREE TIMES A DAY gabapentin 600 mg tablet 600 mg PO QHS Patient Comments: TAKE ONE TABLET BY MOUTH AT BEDTIME methadone [Dolophine] 5 MG tablet 50 mg PO DAILY aspirin 81 mg Tablet,Delayed Release (Dr/Ec) 81 mg PO DAILY prasugrel 10 mg tablet 1 tab PO DAILY Discharge Instructions Additional Instructions: follow up with your neurosurgery team as soon as possible you should immediately return to the emergency department if you have severe headaches, persistent vomiting or weakness.
[2024-04-21] MEDS: Gabapentin 100 MG CAP PO ×2 (12:58→15:58)
[2024-04-21] MEDS: Gabapentin 300 MG CAP PO ×2 (12:58→15:58)
--- NOTE | 2024-04-21 14:00 | DI.MRI_ITS ---
Exam(s) MR BRAIN WO EXAM: MR BRAIN WO CLINICAL HISTORY: Stroke eval, hx basilar aneurysm and shunt TECHNIQUE: Multiplanar multisequence MRI of the brain was performed. COMPARISON: CT CT BRAIN NECK CTA from 04/20/2024 FINDINGS: Mild artifact related to right-sided ventricular shunt. VENTRICLES AND EXTRA AXIAL SPACES: Normal in size and morphology for the patient's age. The right-si ded ventricular shunt in place with tip in medial aspect of frontal horn of right lateral ventricle. MIDLINE SHIFT: None. CEREBRAL PARENCHYMA: No focus of restricted diffusion to suggest acute infarct. No space-occupying le yosvany identified. HEMORRHAGE: None. BRAINSTEM/CEREBELLUM: Deformity of the posterior aspects of both cerebellar hemispheres again noted a t as seen on recent CT. VISUALIZED PARANASAL SINUSES/MASTOIDS:Clear. Vasculature: Normal flow void. PITUITARY GLAND: Unremarkable. ORBITS: Unremarkable. IMPRESSION: No evidence of acute infarct. Right-sided ventricular shunt in place. DATA REPOSITORY:
--- NOTE | 2024-04-21 18:25 | ED.PROG_ITS ---
Date of service: 04/21/24 Time of Service: 22:00 Medical Decision Making Patient was signed out to me by my colleague Dr. Patel Mcintosh. At that time we are awaiting callback from [facility] neurosurgery. [facility] neurosurgery had been in a surgical case and had not been able to call back for a few hours. Dr. pitts called back eventually, and had reviewed the MRI. Our read from our radiologist demonstrated no evidence of acute infarct bleed or other acute process. Patient was feeling well. [facility] neurosurgery reviewed the case and did not have any additional recommendations in regards to neurosurgical intervention. They did not see any evidence of bleed or complication. They did not recommend any change for the shunt. They did recommend close follow-up at his scheduled appointment in 2 days with them and neurosurgery. They also recommended a nonemergent TIA workup. These recommendations will be forwarded to the patient's primary care provider. On personal reassessment the patient appears significantly improved. He is able to ambulate well. He does have some horizontal unidirectional fatigable nystagmus. No vertical or rotatory nystagmus. Negative test of skew. Patient demonstrates symptoms consistent with peripheral vertigo. At this time with both negative imaging, and his current clinical assessment his symptoms appear clinically inconsistent with cerebellar infarct or stroke, hemorrhage, meningitis, or other significant abnormality. Patient and significant other at bedside both state that he has not been drinking significant fluids recently, additionally he has been consuming red bowls variably regularly. I have recommended that he avoid significant salt products, significant caffeine products, and stay well- hydrated. We will give a prescription for meclizine for home use. Discussed red flags for which to return. I have extensively reviewed the treatment plan and discharge instructions with the patient and their family. I have addressed all patient concerns at this time. The patient and family was made aware of what symptoms to monitor for that would warrant a return to the emergency department. Discussed the plan with the patient and family, they demonstrate verbal understanding and agreement with our assessment and plan at this time. The documentation in this chart was dictated using [employer] dictation software. Please excuse any dictation errors. FINDINGS: Mild artifact related to right-sided ventricular shunt. VENTRICLES AND EXTRA AXIAL SPACES: Normal in size and morphology for the patient's age. The right-sided ventricular shunt in place with tip in medial aspect of frontal horn of right lateral ventricle. MIDLINE SHIFT: None. CEREBRAL PARENCHYMA: No focus of restricted diffusion to suggest acute infarct. No space-occupying lesion identified. HEMORRHAGE: None. BRAINSTEM/CEREBELLUM: Deformity of the posterior aspects of both cerebellar hemispheres again noted at as seen on recent CT. VISUALIZED PARANASAL SINUSES/MASTOIDS:Clear. Vasculature: Normal flow void. PITUITARY GLAND: Unremarkable. ORBITS: Unremarkable. IMPRESSION: No evidence of acute infarct. Right-sided ventricular shunt in place. 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 CT/CTA unremarkable, INTERLINE CLERK shunt series unremarkable, [facility] neurosurgery without recommendations for intervention, [facility] neuro recommending MRI, would likely benefit from transfer to [facility], pending teleneuro callback. Last updated by Samia Diana MD at 04/20/24 23:50 Sign Out Comment: 38yo M, hx prior basilar artery aneurysm with stent and INTERLINE CLERK shunt, presented with vertigo & R gaze palsy. Teleneuro + [facility] neurosurgery consulted; recommended MRI, [facility] with no capacity. Pending MRI, would re- consult neurology/nsgy with results. Last updated by Maria Del Rosario Monge MD at 04/21/24 06:23 Discharge Plan Disposition Patient Disposition: Home Condition: Serious Discharge Details Clinical Impression: Dizziness Primary Care Provider: Lina Chester ED Provider: Omer Renteria Home Meds and New Rx's Prescriptions: New meclizine 25 mg tablet 25 mg PO BID PRNQty: 30 0RF Continued gabapentin 400 mg capsule 400 mg PO TID Patient Comments: TAKE ONE CAPSULE BY MOUTH THREE TIMES A DAY gabapentin 600 mg tablet 600 mg PO QHS Patient Comments: TAKE ONE TABLET BY MOUTH AT BEDTIME methadone [Dolophine] 5 MG tablet 50 mg PO DAILY aspirin 81 mg Tablet,Delayed Release (Dr/Ec) 81 mg PO DAILY prasugrel 10 mg tablet 1 tab PO DAILY Discharge Instructions Instructions: Dizziness, Adult ED Additional Instructions: At this time your labs and imaging did not show any signs of stroke aneurysm or other concerning etiology. Your symptoms are concerning for mild peripheral vertigo. Please take the meclizine as prescribed. Unfortunately we are only able to send it to [facility]. Please pick it up there. Please stay well-hydrated and cut down on your caffeine use. Please follow-up closely with your primary care provider for outpatient echo testing. Please follow-up closely with neurosurgery at your scheduled appointment on Friday. If you notice any worsening of your symptoms, or any new symptoms such as vomiting, diarrhea, fever, chills, shortness of breath, chest pain, numbness, weakness, or fainting , please return immediately to the emergency department for reevaluation. Please follow up with your primary care provider as soon as possible for reassessment and reevaluation. As always, it was a pleasure participating in your medical care today. Referrals: Lina Chester [Primary Care Provider] - Discharge Data Discharge Date/Time-TO BE ENTERED AT DEPARTURE: 04/21/24 18:47
== END 2024-04-21 18:47 | disposition home or self-care (01) ==
PROVIDERS: Emergency Medicine; Emergency Provider Student in an Organized Health Care Education/Training Program; PCP Family Medicine
DX: R42 Dizziness and giddiness (principal); R11.0 Nausea; Z98.2 Presence of cerebrospinal fluid drainage device; Z79.82 Long term (current) use of aspirin
CPT/HCPCS: 00123; 36415; 70496; 70498; 80053; 82962; 93005; 99285; 70360; 70551; 71045; 72050; 74018; 83735; 84484; 85025; 93010; J2405; J3490